=== PATIENT | female | born 1940 | race Caucasian/White ===

== ENCOUNTER 2016-10-25 00:29 | Emergency (ER) | payer MEDICARE, BC ==
[~2016-10-25] VITALS: Ht 160 cm; Wt 93.5 kg
[~2016-10-25 00:29] MED LIST: ACYC-1 PO; ASPI81TA82 PO; FISH1000 PO; FURO20TA PO; LANTUS2P SC; LEXA10TA PO; LIPI40TA PO; METO25 PO; PRED-1 PO; VALS160T4 PO
[2016-10-25 00:51] VITALS: BP 160/81; PULSE 71; RESP 18; TEMP 97.9; O2SAT 96
[2016-10-25 04:23] VITALS: BP 160/81; PULSE 71; RESP 18; TEMP 97.9; O2SAT 96
[2016-10-25 04:30] VITALS: BP 236/84; PULSE 58; RESP 18; O2SAT 96
--- NOTE | 2016-10-25 04:38 | PD ---
HPI Chief Complaint: Diabetic Time Seen by Provider: 04:32 Travel History International Travel<30 days: No Contact w/Intl Traveler<30days: No Traveled to known affect area: No History of Present Illness HPI The patient is a 75-year-old female that has a history of insulin-dependent diabetes and her blood sugar was 479 yesterday afternoon. At 2 PM she got a shot of cortisone by the orthopedist. At 6 PM she took her usual dose of Lantus , she is not on a sliding scale. At 238 tonight her blood sugar is 471 and at 420 her blood sugar was 432. She had to wait in the emergency department triage area because of a lack of nurses, there was not an available bed in the emergency department. The patient has slight nausea but no vomiting. She denies any shortness of breath. She denies any fever. She states nurses have a difficult time starting IVs in her arms. PFSH Past Medical History Hx Anticoagulant Therapy: Yes (asa) Arthritis: Yes Blood Disorders: No Anxiety: Yes Depression: Yes Cancer: Yes (MELANOMA NOSE) Cardiovascular Problems: Yes High Cholesterol: Yes Diabetes: Yes Diminished Hearing: No Endocrine: Yes Gastrointestinal Disorders: No GERD: Yes Glaucoma: No Genitourinary: No Headaches: Yes Hepatitis: No Hiatal Hernia: No Hypertension: Yes Immune Disorder: No Implanted Vascular Access Dvce: Yes Musculoskeletal: Yes Neurologic: Yes Immunizations Current: Yes Thyroid Disease: No ?: Not Menopausal: Yes Tubal Ligation: Yes Past Surgical History Abdominal Surgery: Yes (HYSTERECTOMY 1982,TUBAL LIGATION) Appendectomy: Yes Body Medical Devices: PLATE IN NECK Cholecystectomy: Yes Eye Surgery: Yes (JOVAN. CATARACT EXTRACT.) Hysterectomy: Yes Joint Replacement: Yes (LEFT HIP, R HIP 8/10 ) Neurologic Surgery: Yes (LUMBAR LAMI X2) Pacemaker: No Other Surgery: Yes (NECK SX) Social History Alcohol Use: No Tobacco Use: No Substance Use: No Allergies-Medications (Allergen,Severity, Reaction): Coded Allergies: No Known Allergies (Unverified , 10/25/16) Reported Meds & Prescriptions Reported Meds & Active Scripts Active Reported Aspirin 81 Mg Tabdr 81 Mg PO DAILY Lantus Inj (Insulin Glargine) 1,000 Unit/10 Ml Vial 65 Units SQ HS Fish Oil ([place]-3 Fatty Acids) 1,200 Mg Cap 1,200 Mg PO DAILY Coq-10 (Coenzyme Q10 (Ubidecarenone)) 150 Mg Cap 200 Mg PO DAILY Glucosamine 1,500 Mg Tab 2,000 Mg PO DAILY Metoprolol Tartrate 25 Mg Tab 12.5 Mg PO BID Valsartan-Hydrochlorothiazide 320-25 Mg Tab 1 Tab PO DAILY Furosemide 20 Mg Tab 20 Mg PO DAILY Escitalopram (Escitalopram Oxalate) 5 Mg Tab 5 Mg PO DAILY Atorvastatin (Atorvastatin Calcium) 20 Mg Tab 20 Mg PO DAILY Review of Systems Except as stated in HPI: all other systems reviewed are Neg Physical Exam Narrative GENERAL: The patient is alert, obese, oriented 3 in no apparent distress. Her vital signs show blood pressure 160/81 but are otherwise normal. There is no ketotic smell to her breath. She does not appear to be particularly dehydrated. SKIN: Warm and dry. HEAD: Atraumatic. Normocephalic. EYES: Pupils equal and round. No scleral icterus. No injection or drainage. ENT: No nasal bleeding or discharge. Mucous membranes pink and moist. NECK: Trachea midline. No JVD. CARDIOVASCULAR: Regular rate and rhythm. No murmur appreciated. RESPIRATORY: No accessory muscle use. Clear to auscultation. Breath sounds equal bilaterally. GASTROINTESTINAL: Abdomen soft, non-tender, nondistended. Hepatic and splenic margins not palpable. No guarding or rebound is present. MUSCULOSKELETAL: No obvious deformities. No clubbing. No cyanosis. No edema. NEUROLOGICAL: Awake and alert. No obvious cranial nerve deficits. Motor grossly within normal limits. Normal speech. PSYCHIATRIC: Appropriate mood and affect; insight and judgment normal. Data Data Last Documented VS Vital Signs Date Time Temp Pulse Resp B/P Pulse Ox O2 Delivery O2 Flow Rate FiO2 10/25/16 06:42 55 17 141/57 96 Room Air 10/25/16 04:23 97.9 Orders Insulin Human Regular Inj (Novolin R Inj (10/25/16 04:45) Ondansetron Odt (Zofran Odt) (10/25/16 04:45) Acetaminophen (Tylenol) (10/25/16 05:15) Insulin Human Regular Inj (Novolin R Inj (10/25/16 06:00) Insulin Human Regular Inj (Novolin R Inj (10/25/16 06:45) [facility] Medical Decision Making Medical Screen Exam Complete: Yes Emergency Medical Condition: Yes Medical Record Reviewed: Yes Differential Diagnosis Elevated blood sugar because of: Cortisone shot, infection, noncompliance to medications, inadequate insulin dose, dehydration Narrative Course The patient appears to have an elevated blood sugar because of her cortisone shot yesterday. At 0230. Blood sugar was 471. Without any insulin the 0420 blood sugar was 432. After 45 minutes and after 10 units of regular insulin subcutaneous her blood sugar was 413. After 20 units of additional regular insulin subcutaneous her blood sugar was 347 at 0643. The blood sugar is slowly going down and the patient feels fine. She will be given an additional 20 units of insulin subcutaneous and discharged home. She should follow-up with Dr. Gonzalez, hopefully today or tomorrow. The patient wants to go home now and eat breakfast. Diagnosis Primary Impression: Poorly controlled diabetes mellitus Additional Instructions: As we discussed, you can go home and eat breakfast and check here blood sugars. Follow-up with Dr. Gonzalez today or tomorrow. Disposition: DISCHARGE HOME Condition: Stable Stevenson Luong MD Oct 25, 2016 04:38
[2016-10-25] MEDS ORDERED: FURO20TA PO (04:40)
[2016-10-25] MEDS ORDERED: GLUC15009 PO (04:40)
[2016-10-25] MEDS ORDERED: LANTUS2P SQ (04:40)
[2016-10-25] MEDS ORDERED: METO25TA3 PO (04:40)
[2016-10-25] MEDS ORDERED: ESCI5TAB PO (04:40)
[2016-10-25] MEDS ORDERED: FISH120014 PO (04:40)
[2016-10-25] MEDS ORDERED: VALS320T6 PO (04:40)
[2016-10-25] MEDS ORDERED: ATOR20TA15 PO (04:40)
[2016-10-25] MEDS ORDERED: COQ-150C PO (04:40)
[2016-10-25] MEDS ORDERED: INSULIN HUMAN REGULAR 1,000 UNITS/10 ML VIAL SQ ONE ×3 (04:45→06:45)
[2016-10-25] MEDS ORDERED: ONDANSETRON ODT 4 MG TAB PO ONE (04:45)
[2016-10-25] MEDS ORDERED: ACETAMINOPHEN 500 MG CPLT PO ONE (05:15)
[2016-10-25 05:45] VITALS: BP 186/79; PULSE 55; RESP 18; O2SAT 97
[2016-10-25] MEDS ORDERED: ASPI1TAB69 PO (06:21)
[2016-10-25 06:35] VITALS: BP 176/66; PULSE 56; RESP 17; O2SAT 97
[2016-10-25 06:42] VITALS: BP 141/57; PULSE 55; RESP 17; O2SAT 96
== END 2016-10-25 07:10 | disposition home or self-care (01) ==
LOC: PHED 00:29
DX: E11.9 Type 2 diabetes mellitus without complications (principal); E78.00 Pure hypercholesterolemia, unspecified; I10 Essential (primary) hypertension; Z79.01 Long term (current) use of anticoagulants; Z79.4 Long term (current) use of insulin
CPT/HCPCS: 96372; 99284; J1815

== ENCOUNTER 2017-01-23 01:14 | Emergency (ER) | payer MEDICARE, BC ==
[~2017-01-23] VITALS: Ht 160 cm; Wt 92.3 kg
[~2017-01-23 01:14] MED LIST changes: -ACYC-1 PO; +ASPI1TAB69 PO; -ASPI81TA82 PO; +ATOR20TA15 PO; +COQ-150C PO; +ESCI5TAB PO; -FISH1000 PO; +FISH120014 PO; +GLUC15009 PO; -LANTUS2P SC; +LANTUS2P SQ; -LEXA10TA PO; -LIPI40TA PO; -METO25 PO; +METO25TA3 PO; -PRED-1 PO; -VALS160T4 PO; +VALS320T6 PO
[2017-01-23 01:20] VITALS: BP 166/74; PULSE 63; RESP 12; TEMP 97.7; O2SAT 94
[2017-01-23] MEDS ORDERED: OMEG12007 PO (01:43)
[2017-01-23] MEDS ORDERED: ASPI81CH CHEW (01:43)
[2017-01-23] MEDS ORDERED: COQ-50CA2 PO (01:43)
--- NOTE | 2017-01-23 02:03 | PD ---
HPI Chief Complaint: Abdominal Pain Time Seen by Provider: 01:44 Travel History International Travel<30 days: No Contact w/Intl Traveler<30days: No Traveled to known affect area: No History of Present Illness HPI 76-year-old female presents to the emergency department for complaint of stabbing right lower quadrant abdominal pain. Patient states she has been experiencing similar less intense symptoms intermittent he for a while but this evening symptoms became worse associated with malodorous urine and nausea. Patient denies vomiting. There is been no diarrhea. No recent antibiotic use. Patient is status post hysterectomy cholecystectomy and partial oophorectomy. No prior history of bowel obstruction. No fever or chills. Patient is diabetic and blood sugars have been well-controlled. Patient denies any chest pain or shortness of breath. Pain is 2-8/10 in intensity. PFSH Past Medical History Narrative Medical Anxiety depression arthritis melanoma of the nose dyslipidemia hypertension diabetes headache kidney stone hysterectomy tubal ligation partial oophorectomy and cholecystectomy lumbar laminectomy; no tobacco use: Nursing notes reviewed Hx Anticoagulant Therapy: Yes (asa) Arthritis: Yes Blood Disorders: No Anxiety: Yes Depression: Yes Cancer: Yes (MELANOMA NOSE) Cardiovascular Problems: Yes High Cholesterol: Yes Diabetes: Yes Patient Takes Glucophage: No Diminished Hearing: No Endocrine: Yes Gastrointestinal Disorders: No GERD: Yes Glaucoma: No Genitourinary: No Headaches: Yes Hepatitis: No Hiatal Hernia: No Hypertension: Yes Immune Disorder: No Implanted Vascular Access Dvce: Yes Kidney Stones: Yes Musculoskeletal: Yes Neurologic: Yes Respiratory: Yes (BRONCHITIS) Integumentary: Yes (ON THE NOSE) Immunizations Current: Yes Shingles: Yes Thyroid Disease: No ?: Not Menopausal: Yes : 5 Para: 2 Miscarriage: 3 Tubal Ligation: Yes Past Surgical History Abdominal Surgery: Yes (HYSTERECTOMY 1982,TUBAL LIGATION) Appendectomy: Yes Body Medical Devices: PLATE IN NECK Cholecystectomy: Yes Eye Surgery: Yes (JOVAN. CATARACT EXTRACT.) Hysterectomy: Yes Joint Replacement: Yes (BOTH KNEES AND PLATE IN NECK) Neurologic Surgery: Yes (LUMBAR LAMI X2) Pacemaker: No Other Surgery: Yes (LUMPECTOMY RIGHT BREAST) Social History Alcohol Use: No Tobacco Use: No Substance Use: No Allergies-Medications (Allergen,Severity, Reaction): Coded Allergies: No Known Allergies (Unverified , 01/23/17) Reported Meds & Prescriptions Reported Meds & Active Scripts Active Prednisone 20 Mg Tab 20 Mg PO DAILY Lortab (Hydrocodone-Acetaminophen) 5-325 Mg Tab 0.5-1 Tab PO Q6H PRN Reported Fish Oil 1,200 mg Softgel ([place]-3S/Dha/Epa/Fish Oil) 1 Each Capsule 1 Cap PO DAILY Coq-10 (Coenzyme Q10 (Ubidecarenone)) 50 Mg Cap 200 Mg PO DAILY Aspirin 81 Mg Chew 81 Mg CHEW DAILY Lantus Inj (Insulin Glargine) 1,000 Unit/10 Ml Vial 60 Units SQ HS Glucosamine 1,500 Mg Tab 2,000 Mg PO DAILY Metoprolol Tartrate 25 Mg Tab 12.5 Mg PO BID Valsartan-Hydrochlorothiazide 320-25 Mg Tab 1 Tab PO DAILY Furosemide 20 Mg Tab 20 Mg PO DAILY Escitalopram (Escitalopram Oxalate) 5 Mg Tab 5 Mg PO DAILY Atorvastatin (Atorvastatin Calcium) 20 Mg Tab 20 Mg PO DAILY Review of Systems Except as stated in HPI: all other systems reviewed are Neg General / Constitutional: No: Fever, Chills HENT: No: Congestion Cardiovascular: No: Chest Pain or Discomfort Respiratory: No: Shortness of Breath Gastrointestinal: Positive: Nausea, Abdominal Pain, No: Vomiting, Diarrhea Genitourinary: No: Dysuria, Flank Pain Musculoskeletal: No: Myalgias, Arthralgias Skin: No Rash Neurologic: No: Weakness, Dizziness, Syncope Psychiatric: No: Anxiety Hematologic/Lymphatic: No: Lymph Node Enlargement Physical Exam Narrative GENERAL: Well-developed well-nourished female in no acute distress no respiratory distress SKIN: Warm and dry. HEAD: Normocephalic. EYES: No scleral icterus. No injection or drainage. NECK: Supple, trachea midline. No JVD or lymphadenopathy. CARDIOVASCULAR: Regular rate and rhythm without murmurs, gallops, or rubs. RESPIRATORY: Breath sounds equal bilaterally. No accessory muscle use. GASTROINTESTINAL: Abdomen soft, mild right lower quadrant tenderness without guarding or rebound, nondistended. MUSCULOSKELETAL: No cyanosis, or edema. BACK: Nontender without obvious deformity. No CVA tenderness. Data Data Last Documented VS Vital Signs Date Time Temp Pulse Resp B/P Pulse Ox O2 Delivery O2 Flow Rate FiO2 01/23/17 04:20 57 198/78 01/23/17 03:35 96 Room Air 01/23/17 01:20 97.7 12 Orders Basic Metabolic Panel (Bmp) (01/23/17 01:44) Complete Blood Count With Diff (01/23/17 01:44) Lipase (01/23/17 01:44) Urinalysis - C+S If Indicated (01/23/17 01:44) Iv Access Insert/Monitor (01/23/17 01:44) Ecg Monitoring (01/23/17 01:44) Oximetry (01/23/17 01:44) Ct Abd/Pel W/O Iv Contrast (01/23/17 ) Ondansetron Inj (Zofran Inj) (01/23/17 03:15) Morphine Inj (Morphine Inj) (01/23/17 03:15) Ketorolac Inj (Toradol Inj) (01/23/17 04:30) Sodium Chlorid 0.9% 500 Ml Inj (Ns 500 M (01/23/17 04:30) Insulin Human Regular Inj (Novolin R Inj (01/23/17 04:30) Hydralazine Inj (Apresoline Inj) (01/23/17 04:30) Labs Laboratory Tests Test 01/23/17 01/23/17 01:30 01:50 Urine Color YELLOW Urine Turbidity SLIGHT Urine pH 5.5 Urine Specific [place] 1.028 Urine Protein NEG mg/dL Urine Glucose (UA) 1000 OR GREATER mg/dL Urine Ketones NEG mg/dL Urine Occult Blood NEG Urine Nitrite NEG Urine Bilirubin NEG Urine Leukocyte Esterase NEG Urine RBC 0-3 /hpf Urine WBC 3-5 /hpf Urine Squamous Epithelial 0-5 /hpf Cells Urine Bacteria OCC /hpf Microscopic Urinalysis Comment CULT NOT INDICATED White Blood Count 6.3 TH/MM3 Red Blood Count 3.97 MIL/MM3 Hemoglobin 11.7 GM/DL Hematocrit 34.5 % Mean Corpuscular Volume 87.1 FL Mean Corpuscular Hemoglobin 29.6 PG Mean Corpuscular Hemoglobin 33.9 % Concent Red Cell Distribution Width 12.5 % Platelet Count 173 TH/MM3 Mean Platelet Volume 9.5 FL Neutrophils (%) (Auto) 46.6 % Lymphocytes (%) (Auto) 37.0 % Monocytes (%) (Auto) 13.0 % Eosinophils (%) (Auto) 2.0 % Basophils (%) (Auto) 1.4 % Neutrophils # (Auto) 3.0 TH/MM3 Lymphocytes # (Auto) 2.3 TH/MM3 Monocytes # (Auto) 0.8 TH/MM3 Eosinophils # (Auto) 0.1 TH/MM3 Basophils # (Auto) 0.1 TH/MM3 CBC Comment DIFF FINAL Differential Comment Sodium Level 140 MEQ/L Potassium Level 3.8 MEQ/L Chloride Level 103 MEQ/L Carbon Dioxide Level 26.2 MEQ/L Anion Gap 11 MEQ/L Blood Urea Nitrogen 25 MG/DL Creatinine 1.30 MG/DL Estimat Glomerular Filtration 40 ML/MIN Rate Random Glucose 319 MG/DL Calcium Level 9.3 MG/DL Lipase 155 U/L MDM Medical Decision Making Medical Screen Exam Complete: Yes Emergency Medical Condition: Yes Medical Record Reviewed: Yes Interpretation(s) UA: glucosuria o/w wnl Vital Signs Date Time Temp Pulse Resp B/P Pulse Ox O2 Delivery O2 Flow Rate FiO2 01/23/17 03:06 65 207/82 98 Room Air 01/23/17 01:20 97.7 63 12 166/74 94 CBC & BMP Diagram 01/23/17 01:50 Vital Signs Date Time Temp Pulse Resp B/P Pulse Ox O2 Delivery O2 Flow Rate FiO2 01/23/17 03:06 65 207/82 98 Room Air 01/23/17 01:20 97.7 63 12 166/74 94 Differential Diagnosis Abdominal pain, UTI, renal colic, diverticulosis, colitis, appendicitis, bowel obstruction; also to consider ischemic colitis Narrative Course IV access obtained specimens collected and sent for resulting CBC was automated differential values in normal range; metabolic panel shows renal insufficiency creatinine 1.30 Urinalysis shows glucosuria values otherwise in normal range Patient complains of nausea and intermittent gripping right lower quadrant abdominal pain CT abdomen and pelvis imaging study ordered Diagnosis Primary Impression: Right groin pain Additional Impressions: Lumbar radiculopathy, right Hypertension Qualified Code: I10 - Essential hypertension DM (diabetes mellitus) Referrals: Primary Care Physician 1 day Patient Instructions: Narcotic given in the ED, General Instructions Additional Instructions: Follow-up with your primary care provider call office in a.m. to schedule follow -up appointment Apply moist heat intermittently to area of discomfort as needed Take pain medication as prescribed as needed use with caution as may cause increased risk for fall or delay reaction time or impaired judgment Return to the emergency for for any concerns or change in condition Take chronic medications as chronically prescribed Monitor blood sugars closely along with closely appearance to diabetic diet- particularly while on short course of steroid therapy Med/Other Pt SpecificInfo: Prescription(s) given Scripts Prednisone 20 Mg Tab20 Mg PO DAILY #3 TAB Ref 0 Prov:Erika Weaver MD 01/23/17 Hydrocodone-Acetaminophen (Lortab)5-325 Mg Tab0.5-1 Tab PO Q6H PRN (PAIN) #10 TAB Ref 0 Prov:Erika Weaver MD 01/23/17 Disposition: 01 DISCHARGE HOME Condition: Stable Erika Weaver MD Jan 23, 2017 02:03
[2017-01-23 02:09] LABS: BASOPHIL # 0.1 TH/MM3 (0-0.2); BASOPHIL % 1.4 % (0.0-2.0); EOSINOPHIL # 0.1 TH/MM3 (0-0.4); HEMATOCRIT 34.5 % (35.0-46.0); HEMO FLAGS DIFF FINAL; LYMPHOCYTE # 2.3 TH/MM3 (1.0-4.8); MEAN CELL VOLUME 87.1 FL (80.0-100.0); MEAN CORPUSCULAR HEMOGLOBIN 29.6 PG (27.0-34.0); MEAN CORPUSCULAR HGB CONC 33.9 % (32.0-36.0); NEUT % 46.6 % (16.0-70.0); PLATELET COUNT 173 TH/MM3 (150-450); RED BLOOD COUNT 3.97 MIL/MM3 (4.00-5.30); RED CELL DISTRIBUTION WIDTH 12.5 % (11.6-17.2); WHITE BLOOD COUNT 6.3 TH/MM3 (4.0-11.0)
[2017-01-23 02:13] LABS: BLOOD, URINE NEG (NEG); KETONE, URINE NEG (NEG); NITRITE,URINE NEG (NEG); PH, URINE 5.5 (5.0-8.5)
[2017-01-23 02:18] LABS: POTASSIUM 3.8 MEQ/L (3.5-5.1)
[2017-01-23 02:21] LABS: BICARBONATE 26.2 MEQ/L (21.0-32.0)
[2017-01-23 02:22] LABS: GLUCOSE,URINE 1000 OR GREATER mg/dL (NEG)
[2017-01-23 02:28] LABS: URINE COLOR YELLOW (YELLW/STRAW)
[2017-01-23 02:30] LABS: SQUAMOUS EPITHELIAL CELL URINE 0-5 /hpf (0-5)
[2017-01-23 02:31] LABS: BACTERIA, URINE OCC /hpf; COMMENT (UR) CULT NOT INDICATED; CULTURE IF INDICATED CULT NOT INDICATED; RBC, URINE 0-3 /hpf (0-3)
[2017-01-23 03:06] VITALS: BP 207/82; PULSE 65; O2SAT 98
[2017-01-23] MEDS ORDERED: ONDANSETRON HCL 4 MG/2 ML VIAL IV PUSH ONE (03:15)
[2017-01-23] MEDS ORDERED: MORPHINE SULFATE 4 MG/ML INJ IV PUSH ONE (03:15)
[2017-01-23 03:35] VITALS: BP 224/94; PULSE 62; O2SAT 96
--- NOTE | 2017-01-23 03:49 | RADHPO ---
EXAM DATE/TIME: 01/23/2017 03:16 [facility] COMPARISON: Report only CT ABDOMEN & PELVIS W CONTRAST, April 23, 2012, 3:06. INDICATIONS : Right lower abdominal pain. ORAL CONTRAST: No oral contrast ingested. RADIATION DOSE: 24.76 CTDIvol (mGy) MEDICAL HISTORY : Diabetes mellitus type 2. Hypertension. SURGICAL HISTORY : Appendectomy. Cholecystectomy.Hysterectomy. ENCOUNTER: Initial ACUITY: 1 day PAIN SCALE: 9/10 LOCATION: Right lower quadrant TECHNIQUE: Volumetric scanning of the abdomen and pelvis was performed. Using automated exposure control and ad justment of the mA and/or kV according to patient size, radiation dose was kept as low as reasonably achievable to obtain optimal diagnostic quality images. FINDINGS: LOWER LUNGS: The visualized lower lungs are clear. LIVER: Homogeneous density without lesion. There is no dilation of the biliary tree. Cholecystectomy since the prior CT.. SPLEEN: Normal size without lesion. PANCREAS: Within normal limits. KIDNEYS: Normal in size and shape. There is no mass, stone, or hydronephrosis. ADRENAL GLANDS: Within normal limits. VASCULAR: There is no aortic aneurysm. BOWEL/MESENTERY: The stomach, small bowel, and colon demonstrate no acute abnormality. There is no free intraperitone al air or fluid. Appendix well visualized, normal. ABDOMINAL WALL: Within normal limits. RETROPERITONEUM: There is no lymphadenopathy. BLADDER: No wall thickening or mass. REPRODUCTIVE: Within normal limits. INGUINAL: There is no lymphadenopathy or hernia. MUSCULOSKELETAL: No acute bony abnormality demonstrated. Previous bilateral hip arthroplasties with associated metalli c streak artifact. CONCLUSION: No acute abnormality demonstrated. Ok Martin MD on January 23, 2017 at 3:46 Board Certified Radiologist. This report was verified electronically.
[2017-01-23 04:20] VITALS: BP 198/78; PULSE 57
[2017-01-23] MEDS ORDERED: KETOROLAC TROMETHAMINE 30 MG/ML (IVP) VIAL IV PUSH ONE (04:30)
[2017-01-23] MEDS ORDERED: INSULIN HUMAN REGULAR 1,000 UNITS/10 ML VIAL SQ ONE (04:30)
[2017-01-23] MEDS ORDERED: SODIUM CHLORID 0.9% 500 ML INJ 500 ML IV ONE (04:30)
[2017-01-23] MEDS ORDERED: hydrALAZINE HCL 20 MG/ML VIAL IV PUSH ONE (04:30)
[2017-01-23] MEDS ORDERED: HYDR-3533 PO (05:30)
[2017-01-23] MEDS ORDERED: PRED20 PO (05:30)
[2017-01-23 06:10] VITALS: BP 173/74
== END 2017-01-23 06:11 | disposition home or self-care (01) ==
LOC: PHED 01:14
DX: R10.31 Right lower quadrant pain (principal); I10 Essential (primary) hypertension; E11.9 Type 2 diabetes mellitus without complications; M54.16 Radiculopathy, lumbar region; E78.00 Pure hypercholesterolemia, unspecified; K21.9 Gastro-esophageal reflux disease without esophagitis; Z87.442 Personal history of urinary calculi; Z79.82 Long term (current) use of aspirin
CPT/HCPCS: 74176; 80048; 81001; 83690; 85025; 96361; 96372; 96374; 96375; 99285; J0360; J1815; J1885; J2270; J2405; J7040

== ENCOUNTER → 2017-04-24 | Outpatient (CLI) | payer MEDICARE, BC ==
[~2017-04-24] MED LIST changes: +ADJUSTABLE COMM1 MIS; -ASPI1TAB69 PO; +ASPI81CH CHEW; -COQ-150C PO; +COQ-50CA2 PO; +CPMMACHINE; -FISH120014 PO; +HYDR-3533 PO; +MELO-1 PO; +OMEG12007 PO; +OXYC1TAB63 PO; +PANT40TA3 PO; +PRED20 PO; +WALKER WHEELS/F1 MIS; +XARE10TA PO
[2017-04-24 10:03] LABS: BACTERIA, URINE FEW /hpf; BLOOD, URINE NEG (NEG); GLUCOSE,URINE TRACE mg/dL (NEG); HYALINE CAST, URINE 4 /lpf (RARE); KETONE, URINE NEG (NEG); NITRITE,URINE NEG (NEG); SQUAMOUS EPITHELIAL CELL URINE <1 /hpf (0-5); URINE COLOR LIGHT-YELLOW (YELLW/STRAW)
[2017-04-24 10:03] LABS: AUTOMATED NEUTROPHIL # 4.3 TH/MM3 (1.8-7.7); BASOPHIL # 0.1 TH/MM3 (0-0.2); BASOPHIL % 0.9 % (0.0-2.0); EOSINOPHIL # 0.1 TH/MM3 (0-0.4); EOSINOPHIL % 1.5 % (0.0-4.0); HEMATOCRIT 36.7 % (35.0-46.0); HEMO FLAGS DIFF FINAL; LYMPH % 27.2 % (9.0-44.0); LYMPHOCYTE # 1.9 TH/MM3 (1.0-4.8); MEAN CELL VOLUME 90.2 FL (80.0-100.0); MEAN CORPUSCULAR HEMOGLOBIN 30.2 PG (27.0-34.0); MEAN CORPUSCULAR HGB CONC 33.5 % (32.0-36.0); MONO % 9.2 % (0.0-8.0); NEUT % 61.2 % (16.0-70.0); PLATELET COUNT 177 TH/MM3 (150-450); RED BLOOD COUNT 4.07 MIL/MM3 (4.00-5.30); RED CELL DISTRIBUTION WIDTH 13.2 % (11.6-17.2)
[2017-04-24 10:04] LABS: COMMENT (UR) CATH-CULTURE IND; CULTURE IF INDICATED CATH CULTURE IND
[2017-04-24 10:07] LABS: APTT (PATIENT) 22.1 SEC (24.3-30.1); INTERNATIONAL NORMALIZED RATIO 0.9 RATIO; PROTHROMBIN TIME - PATIENT 9.9 SEC (9.8-11.6)
[2017-04-24 10:26] LABS: WESTERGREN SEDIMENTATION RATE 30 mm/hr (0-30)
--- NOTE | 2017-04-25 14:10 | EKG ---
Date Performed: 04/24/2017 Time Performed: 09:18:05 PTAGE: 76 years EKG: Sinus rhythm WITH MARKED SINUS ARRHYTHMIA BORDERLINE ECG Compared to prior tracing no significant change PREVIOUS TRACING : 08/02/2014 21.39 DOCTOR: Jero Bey Interpretating Date/Time 04/25/2017 14:07:09
== END ==
LOC: CPRE 08:16
PROVIDERS: ATTEND Orthopaedic Surgery Orthopaedic Surgery of the Spine
DX: Z01.812 Encounter for preprocedural laboratory examination (principal); Z01.810 Encounter for preprocedural cardiovascular examination; M25.50 Pain in unspecified joint; M17.11 Unilateral primary osteoarthritis, right knee; B96.20 Unspecified Escherichia coli [E. coli] as the cause of diseases classified elsewhere; R82.99 Other abnormal findings in urine; Z79.01 Long term (current) use of anticoagulants
CPT/HCPCS: 36415; 80048; 81001; 85025; 85610; 85652; 85730; 87077; 87086; 87186; 93005

== ENCOUNTER 2017-05-09 05:21 | Inpatient (IN) | payer MEDICARE, BC ==
[~2017-05-09] VITALS: Ht 160 cm; Wt 98.9 kg
[~2017-05-09 05:21] MED LIST changes: -ADJUSTABLE COMM1 MIS; -CPMMACHINE; -HYDR-3533 PO; -OXYC1TAB63 PO; -WALKER WHEELS/F1 MIS; -XARE10TA PO
[2017-05-09] MEDS ORDERED: CHLORHEXIDINE GLUCONATE 2 % 1 PACK (2 CLOTHS) TOPICAL PRN (06:00)
[2017-05-09] MEDS ORDERED: LACTATED RINGER'S 1000 ML IV PRN (06:00)
[2017-05-09] MEDS ORDERED: INSULIN HUMAN REGULAR 1,000 UNITS/10 ML VIAL SQ PRN (06:00)
[2017-05-09] MEDS ORDERED: METOPROLOL TARTRATE 25 MG TAB PO PRN (06:00)
[2017-05-09] MEDS ORDERED: VANCOMYCIN 1000 MG/NS 250 ML (for <70 kg) IV SCH ×2 (06:00)
[2017-05-09] MEDS ORDERED: POVIDONE IODINE 5% (ANTISEPSIS KIT) 4 APPLICATIONS EACH NARE PRN (06:00)
[2017-05-09] MEDS ORDERED: ceFAZolin 2 GM PREMIX 50 ML IV SCH (06:00)
[2017-05-09] MEDS ORDERED: POVIDONE IODINE 7.5% SCRUB 118 ML BOTTLE TOPICAL SCH (06:00)
[2017-05-09] MEDS ORDERED: SODIUM CHLORID 0.9% 500 ML IV PRN (06:00)
[2017-05-09] MEDS ORDERED: GENTAMICIN SULFATE 80 MG/2 ML VIAL ONE (06:13)
[2017-05-09] MEDS ORDERED: FAMOTIDINE 20 MG/2 ML VIAL ONE (07:09)
[2017-05-09] MEDS ORDERED: ACETAMINOPHEN 1000 MG/100 ML 100 ML IV ONE (07:12)
[2017-05-09] MEDS ORDERED: BUPIVACAINE HCL PF 0.5% 30 ML VIAL ONE (07:14)
[2017-05-09] MEDS ORDERED: EXPAREL PERI-ARTICULAR INJECTION (TOTAL VOL. 60 ML) P-ARTICULR SCH ×2 (07:30)
[2017-05-09] MEDS ORDERED: TRANEXAMIC ACID INJ 905 MG in SODIUM CHLORIDE 0.9% INJ 100 ML IV SCH (07:30)
[2017-05-09] MEDS: LACTATED RINGER'S 1000 ML INJ 1,000 ML IV SCH ×2 (09:27→21:05)
[2017-05-09] MEDS ORDERED: Post-op Orders (for Pharmacy) MISC XX ONE (09:30)
[2017-05-09] MEDS ORDERED: SODIUM CHLORIDE 0.9% FLUSH 5 ML FLUSH IVF PRN (09:30)
[2017-05-09] MEDS ORDERED: MISCELLANEOUS PHARMACY INFORMATION XX ONE (09:30)
[2017-05-09] MEDS ORDERED: oxyCODONE/ACETAMINOPHEN 5 MG/325 MG TAB PO PRN (09:30)
[2017-05-09] MEDS ORDERED: NALOXONE HCL 0.4 MG/ML AMP IV PRN (09:30)
[2017-05-09] MEDS ORDERED: MORPHINE SULFATE 30 MG/30 ML PCA IV SCH (09:30)
[2017-05-09] MEDS ORDERED: MORPHINE SULFATE 8 MG/ML INJ IM PRN (09:30)
[2017-05-09] MEDS ORDERED: DEXTROSE 50% IN WATER 50 ML VIAL(D50) IV PUSH PRN (09:30)
[2017-05-09] MEDS ORDERED: GLUCAGON 1 MG/ML VIAL OTHER PRN (09:30)
[2017-05-09] MEDS ORDERED: MISCELLANEOUS NURSING INFORMATION XX PRN (09:30)
[2017-05-09] MEDS ORDERED: XARE10TA PO (09:38)
[2017-05-09] MEDS ORDERED: OXYC1TAB63 PO (09:38)
--- NOTE | 2017-05-09 09:42 | PD.OP ---
cc: Gerald Acosta MD Operative Report Date of Surgery: May 09, 2017 Preoperative Diagnosis: Osteoarthritis right knee Postoperative Diagnosis: Same Procedure: Right total knee replacement arthroplasty Anesthesia: Gen. with regional block Surgeon: Gerald Acosta [employer] Sergeant(s): BISI Macdonald Operation and Findings: EBL: 100 cc INDICATION: This patient presents with long-standing arthritis of the knee. Attachment record documents conservative measures. The patient now presents for surgical treatment. NOTE: Ivelisse Macdonald PA-C was present for the entire surgical procedure as my rn first assist. In my medical opinion her skill and care was necessary for proper management of this patient. TOURNIQUET TIME: 53 minutes COMPANY: [employer] FEMUR: Size 3, cruciate retaining, right, cemented TIBIA: Size 4, fixed bearing, cemented PATELLA: 35 mm POLYETHYLENE INSERT: 13 mm,++ PROCEDURE: This patient was brought the operating room and anesthetized in the supine position. The patient was positioned supine on the table. The tourniquet was placed about the thigh, and the leg was scrubbed with alcohol followed by Hibiclens followed by ChloraPrep and draped sterilely. A timeout was done, and antibiotics were given. After exsanguination the tourniquet was inflated to 300 mmHg. An anterior incision was made and a median parapatellar arthrotomy was performed. The patella was released laterally and subluxed allowing freehand cut of the patella which was then sized. A metal cap was placed over the exposed patellar surface for protection. A agricultural pilot hole was placed in the distal femur allowing a 5 valgus cut removing 10 mm from the distal femur. Anterior posterior and chamfer cuts were made. The posterior stabilize osteotomy was made. The attention was directed to the tibia. Retractors were positioned. The external alignment guide was used allowing the lateral tibia to be used as referencing guide and cut utilizing an oscillating saw taking care to avoid any injury to the surrounding soft tissues. This was sized properly. Trial reduction showed that the insert fit nicely. The patient had range of motion extension 0 flexion 115. A medial release was not necessary. The bony surfaces prepared. On the back table 2 packets of methylmethacrylate were mixed. The components were cemented. Excess cement was removed. The tourniquet let down and hemostasis was controlled. The final plastic insert was inserted. Range of motion was the same as previously noted. A drain was brought through a separate stab incision. The arthrotomy was repaired with interrupted #1 Vicryl suture, subcutaneous tissue 2-0 Vicryl suture and skin with metallic conor A sterile dressing was applied. Sponge counts, needle counts and instrument counts were all correct. The patient tolerated procedure well and was taken to recovery in satisfactory condition. FINDINGS: Was severe osteoarthritis of all 3 compartments. Before the surgical treatment maximal flexion was 85-90. At the end of the surgery, flexion was 115 with the hip bent 90 and the leg flexing with gravity. The overall alignment was satisfactory. No complication was appreciated. Gerald Acosta MD May 09, 2017 09:42
[2017-05-09] MEDS ORDERED: DO NOT ADM ANY ANTICOAGULANT DRUGS PRN (09:55)
[2017-05-09] MEDS ORDERED: PILL SPLITTER OTHER PRN (10:15)
[2017-05-09] MEDS ORDERED: *ONDANSETRON 4 MG VIAL PERIprocedural Use ONLY ONE (10:29)
--- NOTE | 2017-05-09 10:37 | RADRPT ---
EXAM DATE/TIME: 05/09/2017 10:05 [facility] COMPARISON: No previous studies available for comparison. INDICATIONS : Post op right total knee. MEDICAL HISTORY : Diabetes mellitus type 2. Hypertension. SURGICAL HISTORY : Appendectomy. Cholecystectomy.Hysterectomy ENCOUNTER: Initial ACUITY: 1 day PAIN SCORE: 8/10 LOCATION: Right Knee FINDINGS: Postsurgical features of right knee arthroplasty. Arthroplasty components are in anatomic alignment. No significant acute bony fracture. Immediate postsurgical soft tissue features. CONCLUSION: 1. Status post right knee arthroplasty in anatomic alignment without significant acute bony fracture. Aaron Dimas MD on May 09, 2017 at 10:35 Board Certified Radiologist. This report was verified electronically.
[2017-05-09] MEDS ORDERED: *PROMETHAZINE 25 MG/ML VIAL PERIprocedural use ONLY ONE (11:07)
[2017-05-09] MEDS: INSULIN ASPART SUPPLEMENTAL SCALE SQ SCH ×3 (11:59→21:00)
[2017-05-09] MEDS ORDERED: PROPOFOL 200 MG/20 ML AMP IV ONE (12:00)
[2017-05-09] MEDS ORDERED: MIDAZOLAM HCL 2 MG/2 ML VIAL IV ONE (12:00)
[2017-05-09] MEDS ORDERED: ROCURONIUM INJ 50 MG/5 ML SYRINGE IV PUSH ONE (12:00)
[2017-05-09] MEDS ORDERED: NEOSTIGMINE 3 MG/3 ML SYR IV ONE (12:00)
[2017-05-09] MEDS ORDERED: ePHEDrine/NS 25 MG/5 ML SYR IV ONE (12:00)
[2017-05-09] MEDS ORDERED: GLYCOPYRROLATE 1 MG/5 ML SYRINGE IV PUSH ONE (12:00)
[2017-05-09] MEDS ORDERED: LIDOCAINE HCL 1% PF 5 ML AMPULE OTHER ONE (12:00)
[2017-05-09] MEDS ORDERED: hydrALAZINE HCL 20 MG/ML VIAL IV ONE (12:00)
[2017-05-09] MEDS ORDERED: ONDANSETRON HCL 4 MG/2 ML VIAL IV PUSH ONE (12:00)
[2017-05-09] MEDS: PCA - TOTAL MG MORPHINE DELIVERED PER SHIFT SCH ×2 (14:00→22:00)
[2017-05-09 16:00] VITALS: BP 136/58; PULSE 79; RESP 19; TEMP 96.4; O2SAT 96
[2017-05-09] MEDS ORDERED: PHENOL 1.4% SOLN 180 ML BTL OROPHARYNG PRN (20:00)
[2017-05-09 20:10] VITALS: BP 112/61; PULSE 91; RESP 18; TEMP 98.1; O2SAT 93
[2017-05-09] MEDS ORDERED: TEMAZEPAM 15 MG CAP PO PRN (21:00)
[2017-05-09] MEDS: MAGNESIUM HYDROXIDE SUSP 30 ML CUP PO SCH (21:00)
[2017-05-09] MEDS: SODIUM CHLORIDE 0.9% FLUSH 5 ML FLUSH IVF SCH (21:00)
[2017-05-09] MEDS: METOPROLOL TARTRATE 25 MG TAB PO SCH (21:05)
[2017-05-09] MEDS ORDERED: WALKER WHEELS/F1 MIS (21:06)
[2017-05-09] MEDS: SENNOSIDES 8.6 MG TAB PO SCH (21:06)
[2017-05-09] MEDS ORDERED: CPMMACHINE (21:07)
[2017-05-09] MEDS ORDERED: ADJUSTABLE COMM1 MIS (21:08)
--- NOTE | 2017-05-09 21:12 | HHI.DS ---
Discharge Summary Admission Date May 09, 2017 at 05:21 Discharge Date: May 12, 2017 Admitting Diagnosis see below Diagnosis: (1) Osteoarthritis of right knee Diagnosis: Principal ICD Codes: M17.11 - Unilateral primary osteoarthritis, right knee Procedures Right total knee arthroplasty Brief History This is a 76 year old female patient with a history of bilateral knee pain and arthritis. Her right knee pain began to increase substantially earlier this year after she completed a series of euflexxa injections for her left knee. Xrays showed moderate arthritis of her right knee. She attempted use of a cane , medications, a steroid injection and a series of euflexxa injections. Her function continued to decline. Surgical treatment was recommended in the form of right total knee arthroplasty. She agreed and presents for the above procedure. Hospital Course Surgical treatment was performed on the day of admission without complication. She recovered well in PACU and was transferred to the orthopedic floor. Pain was controlled with IV and oral medications. DVT prophylaxis was initiated postop day 1 with Xarelto 10 mg. The patient was compliant but had limited motivation to pursue physical therapy. She did not get out of bed postop day 1. She did limited therapy day 2. The hospitalist was consulted to manage her diabetes and monitor her blood glucose levels. After 3 days she was found to be stable and discharged to a fpc facility. She was educated to pursue a high-fiber diet, continue her xarelto, and to continue a more rigorous physical therapy program. Pt Condition on Discharge: Stable Discharge Disposition: Discharge to SNF Discharge Instructions Diet Instructions: Diabetic Diet, High Fiber Diet Activities You Can Perform: Weight Bearing as [place] Activities to Avoid: Strenuous Activity Additional Activity Instruc.: TKA protocol New Medications: Adjustable Commode 3-in-1 (Adjustable Commode 3-in-1) 1 Mis Mis EA .ROUTE DIRECTED, #1 CPM-Continuous Passive Motion Machine (CPM-Continuous Passive Motion Machine) 1 Ea Device EA .ROUTE DIRECTED, #1 0 Refills Walker with Front Wheels (Walker with Front Wheels) 1 Mis Mis EA .ROUTE DIRECTED, #1 0 Refills Oxycodone-Acetaminophen (Oxycodone-Acetaminophen) 5-325 mg Tab 1 TAB PO Q4H PRN for PAIN, #50 TAB Rivaroxaban (Xarelto) 10 Mg Tab 10 MG PO Q24H for Prevent Blood Clot, #25 TAB Continued Medications: Aspirin (Aspirin) 81 Mg Chew 81 MG CHEW DAILY, TAB 0 Refills Atorvastatin (Atorvastatin) 20 Mg Tab 20 MG PO DAILY for Cholesterol Management, #30 TAB 0 Refills Coenzyme Q10 (Ubidecarenone) (Coq-10) 50 Mg Cap 200 MG PO DAILY Escitalopram (Escitalopram) 5 Mg Tab 5 MG PO DAILY, #30 TAB 0 Refills Furosemide (Furosemide) 20 Mg Tab 20 MG PO DAILY, #30 TAB 0 Refills Glucosamine (Glucosamine) 1,500 Mg Tab 2000 MG PO DAILY for Herbal Supplements, TAB 0 Refills Insulin Glargine Inj (Lantus Inj) 1,000 Unit/10 Ml Vial 70 UNITS SQ HS for Blood Sugar Management, VIAL 0 Refills Meloxicam (Meloxicam) 15 Mg Tab 15 MG PO DAILY for Arthritis Pain, #30 TAB 0 Refills Metoprolol Tartrate (Metoprolol Tartrate) 25 Mg Tab 12.5 MG PO BID, #60 TAB 0 Refills [place]-3S/Dha/Epa/Fish Oil (Fish Oil 1,200 mg Softgel) 1 Each Capsule 1 CAP PO DAILY Pantoprazole (Pantoprazole) 40 Mg Tab 40 MG PO DAILY for Reflux, #30 TAB 0 Refills Prednisone (Prednisone) 20 Mg Tab 20 MG PO DAILY, #3 TAB 0 Refills Valsartan-Hydrochlorothiazide (Valsartan-Hydrochlorothiazide) 320-25 Mg Tab 1 TAB PO DAILY for Blood Pressure Management, #30 TAB 0 Refills Michelle Carson May 09, 2017 21:12
[2017-05-09 21:49] VITALS: O2SAT 98
[2017-05-10] VITALS (8 sets, daily range): BP systolic 98–150; BP diastolic 43–74; PULSE 71–93; RESP 16–19; TEMP 96.4–100.8; O2SAT 92–95
[2017-05-10] MEDS: PCA - TOTAL MG MORPHINE DELIVERED PER SHIFT SCH (06:00)
[2017-05-10 07:18] LABS: HEMATOCRIT 31.4 % (35.0-46.0); REVIEW FLAG FINAL
[2017-05-10] MEDS: INSULIN ASPART SUPPLEMENTAL SCALE SQ SCH ×4 (08:00→23:52)
[2017-05-10] MEDS: SODIUM CHLORIDE 0.9% FLUSH 5 ML FLUSH IVF SCH ×2 (09:00→21:00)
[2017-05-10] MEDS ORDERED: NON-FORMULARY DRUG (Valsartan-Hydrochlorothiazide 1 TAB) PO SCH (09:00)
[2017-05-10] MEDS: RIVAROXABAN 10 MG TAB PO SCH (09:34)
[2017-05-10] MEDS: ESCITALOPRAM OXALATE 10 MG TAB PO SCH (09:34)
[2017-05-10] MEDS: MAGNESIUM HYDROXIDE SUSP 30 ML CUP PO SCH ×2 (09:34→23:49)
[2017-05-10] MEDS: FUROSEMIDE 20 MG TAB PO SCH (09:35)
[2017-05-10] MEDS: VALSARTAN 160 MG TAB PO SCH (09:35)
[2017-05-10] MEDS: ATORVASTATIN 20 MG TAB PO SCH (09:35)
[2017-05-10] MEDS: HYDROCHLOROTHIAZIDE 25 MG TAB PO SCH (09:35)
[2017-05-10] MEDS: METOPROLOL TARTRATE 25 MG TAB PO SCH ×2 (09:36→22:56)
[2017-05-10] MEDS: PANTOPRAZOLE SOD 40 MG DELAYED RELEASE TAB PO SCH (09:40)
[2017-05-10] MEDS: oxyCODONE/ACETAMINOPHEN 5 MG/325 MG TAB PO PRN ×3 (09:40→22:54)
[2017-05-10] MEDS: LACTATED RINGER'S 1000 ML INJ 1,000 ML IV SCH ×2 (10:27→22:57)
--- NOTE | 2017-05-10 13:54 | PD.ORT.PN ---
Subjective Subjective Remarks She was doing well yesterday. Her block wore off this morning and she has ' alot of pain'. Most pain is anterior knee and lower thigh. She has a slight cough. No complaints of fever, SOB, CP or abd pain. Objective Vitals Vital Signs Date Time Temp Pulse Resp B/P (MAP) Pulse Ox O2 Delivery O2 Flow Rate FiO2 05/10/17 13:02 92 05/10/17 11:20 99.1 71 19 116/43 (67) 95 05/10/17 10:40 18 05/10/17 07:52 99.8 73 19 98/44 (62) 92 05/10/17 04:53 99.6 81 19 124/50 (74) 94 05/10/17 00:20 99.9 93 18 150/61 (90) 92 05/09/17 21:49 98 05/09/17 20:10 98.1 91 18 112/61 (78) 93 05/09/17 18:49 Room Air 05/09/17 16:00 96.4 79 19 136/58 (84) 96 I/O 05/09/17 05/09/17 05/09/17 05/10/17 05/10/17 05/10/17 07:00 15:00 23:00 07:00 15:00 23:00 Intake Total 1271 ml 240 ml 1461 ml Output Total 900 ml 525 ml 225 ml Balance 371 ml -285 ml 1236 ml Intake Oral 240 ml 240 ml IV Total 271 ml 1221 ml Other 1000 ml Output Urine Total 800 ml 525 ml 225 ml Estimated Blood Loss 100 ml # Bowel Movements 0 0 Result Diagram: 05/10/17 0541 Procedures Right total knee arthroplasty Objective Remarks Laying in bed, NAD VSS RLE Dressing c/d/i, minimal drainage, mild to moderate swelling, no erythema +motor at, +sens distal, +nvi Neg homans sign, calf supple Assessment & Plan Ortho Post Op Day #: 1 Problem List: (1) Osteoarthritis of right knee ICD Codes: M17.11 - Unilateral primary osteoarthritis, right knee Qualifiers: Qualified Codes: M17.11 - Unilateral primary osteoarthritis, right knee Assessment and Plan pod#1 s/p R TKA Ortho stable but painful. 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 Will d/c tomorrow. Hold dressing changes unless saturated. I did not see a drain. Xarelto 10mg qd for 2 weeks. PT - WBAT RLE, TKA protocol. CPM bid. Ambulate 1-2 times daily. She will need motivation as she is very sedentary (prior to surgery). Med consult for management of diabetes. D/C planning, [facility] monday. Michelle Carson May 10, 2017 13:53
--- NOTE | 2017-05-10 17:56 | PD.CONS ---
[facility] By [facility] team Reason for Consult Assist with medical management Primary Care Physician Adriana Niño MD Diagnoses: History of Present Illness Written by Av Goode, acting as scribe for Dr. Rae on 05/10/17 at 17: 57. Patient is a 76-year-old female with primary medical history of HTN, DM 2, HLD, osteoarthritis who came into the hospital for surgical intervention secondary to right knee pain. Patient is status post right total knee arthroplasty by Dr. Acosta. Consulted for medical management. Patient seen and examined today. States that she is in pain on her right knee, 8/10, aggravated by movement. States that she had morphine yesterday but they stopped giving it to her because of rash reaction. Patient also complains of cough unable to expectorate. Low-grade fever today. Denies chills, nausea, vomiting, diarrhea. Denies shortness of breath or dyspnea. Denies chest pain, palpitations, headaches, dizziness. Review of Systems Except as stated in HPI: all other systems reviewed are Neg Past Family Social History Allergies: Coded Allergies: No Known Allergies (Unverified , 05/29/17) Past Medical History HTN HLD DM 2, insulin use Osteoarthritis Past Surgical History Tubal ligation Hysterectomy Next surgery Cataract surgery Left hip surgery 2 Lumbar laminectomies Cholecystectomy Reported Medications Reported Meds & Active Scripts Active Xarelto (Rivaroxaban) 10 Mg Tab 10 Mg PO Q24H Oxycodone-Acetaminophen 5-325 mg Tab 1 Tab PO Q4H PRN Prednisone 20 Mg Tab 20 Mg PO DAILY Reported Pantoprazole (Pantoprazole Sodium) 40 Mg Tab 40 Mg PO DAILY Meloxicam 15 Mg Tab 15 Mg PO DAILY Fish Oil 1,200 mg Softgel ([place]-3S/Dha/Epa/Fish Oil) 1 Each Capsule 1 Cap PO DAILY Coq-10 (Coenzyme Q10 (Ubidecarenone)) 50 Mg Cap 200 Mg PO DAILY Aspirin 81 Mg Chew 81 Mg CHEW DAILY Lantus Inj (Insulin Glargine) 1,000 Unit/10 Ml Vial 70 Units SQ HS Glucosamine 1,500 Mg Tab 2,000 Mg PO DAILY Metoprolol Tartrate 25 Mg Tab 12.5 Mg PO BID Valsartan-Hydrochlorothiazide 320-25 Mg Tab 1 Tab PO DAILY Furosemide 20 Mg Tab 20 Mg PO DAILY Escitalopram (Escitalopram Oxalate) 5 Mg Tab 5 Mg PO DAILY Atorvastatin (Atorvastatin Calcium) 20 Mg Tab 20 Mg PO DAILY Active Ordered Medications Current Medications Medications (Trade) Dose Ordered Sig/Jesus Route Start Time Stop Time Status Last Admin Lactated Ringer's 1,000 ml @ 30 mls/hr Q24H PRN IV 05/09/17 06:00 05/12/17 05:59 05/09/17 05:50 Sodium Chloride 500 ml @ 30 mls/hr [id number] PRN IV 05/09/17 06:00 05/12/17 05:59 (Lopressor) 25 mg ELECTRONICS PROCESSOR PRN PO 05/09/17 06:00 05/12/17 05:59 (Betadine 5% Antisepsis Kit) 1 applic ELECTRONICS PROCESSOR PRN EACH NARE 05/09/17 06:00 05/12/17 05:59 05/09/17 05:55 (Chlorhexidine 2% Cloth) 3 pack ELECTRONICS PROCESSOR PRN TOPICAL 05/09/17 06:00 05/12/17 05:59 05/09/17 05:30 (NovoLIN R INJ) See Protocol Table ... ELECTRONICS PROCESSOR PRN SQ 05/09/17 06:00 05/12/17 05:59 (Betadine 7.5% Scrub) 1 applic ONCE TOPICAL 05/09/17 06:00 05/12/17 05:59 Cefazolin Sodium/ Dextrose 50 ml @ 100 mls/hr ELECTRONICS PROCESSOR IV 05/09/17 06:00 05/12/17 05:59 05/09/17 07:44 Vancomycin HCl 1000 mg/Sodium Chloride 250 ml @ 250 mls/hr ELECTRONICS PROCESSOR IV 05/09/17 06:00 05/12/17 05:59 05/09/17 06:23 (Lipitor) 20 mg DAILY PO 05/10/17 09:00 05/10/17 09:35 (Lexapro) 5 mg DAILY PO 05/10/17 09:00 05/10/17 09:34 (Lasix) 20 mg DAILY PO 05/10/17 09:00 05/10/17 09:35 (Lopressor) 12.5 mg BID PO 05/09/17 21:00 05/10/17 09:36 (Protonix) 40 mg DAILY PO 05/10/17 09:00 05/10/17 09:40 Lactated Ringer's 1,000 ml @ 80 mls/hr [id number] IV 05/09/17 09:27 05/09/17 21:05 (NS Flush) 2 ml UNSCH PRN IVF 05/09/17 09:30 (NS Flush) 2 ml BID IVF 05/09/17 21:00 (Xarelto) 10 mg Q24H PO 05/10/17 09:00 05/10/17 09:34 Miscellaneous Information UNSCH PRN XX 05/09/17 09:30 (Morphine Inj) 5 mg Q3H PRN IM 05/09/17 09:30 (Percocet 5-325 Mg) 1 tab Q4H PRN PO 05/09/17 09:30 05/10/17 09:40 (Percocet 5-325 Mg) 2 tab Q4H PRN PO 05/09/17 09:30 (Restoril) 15 mg HS PRN PO 05/09/17 21:00 (Milk Of Magnesia Liq) 30 ml BID PO 05/09/17 21:00 05/10/17 09:34 (Senokot) 17.2 mg HS PO 05/09/17 21:00 05/09/17 21:06 (Narcan Inj) 0.4 mg UNSCH PRN IV 05/09/17 09:30 (D50w (Vial) Inj) 50 ml UNSCH PRN IV PUSH 05/09/17 09:30 (Glucagon Inj) 1 mg UNSCH PRN OTHER 05/09/17 09:30 (NovoLOG SUPPLEMENTAL SCALE) 1 ACHS SLIDING SCALE SQ 05/09/17 12:00 05/09/17 11:59 (Pill Splitter) 1 ea UNSCH PRN OTHER 05/09/17 10:15 (Diovan) 320 mg DAILY PO 05/10/17 09:00 05/10/17 09:35 (Hydrodiuril) 25 mg DAILY PO 05/10/17 09:00 05/10/17 09:35 (Chloraseptic [place]) 1 spray Q2H PRN OROPHARYNG 05/09/17 20:00 05/09/17 21:12 Family History Mother of blood clot Father of heart attack age 63 Social History Denies alcohol use Denies tobacco use Denies illicit drug use Physical Exam Vital Signs Vital Signs Date Time Temp Pulse Resp B/P (MAP) Pulse Ox O2 Delivery O2 Flow Rate FiO2 05/10/17 16:00 96.4 71 19 133/74 (93) 93 05/10/17 13:02 92 05/10/17 11:20 99.1 71 19 116/43 (67) 95 05/10/17 10:40 18 05/10/17 07:52 99.8 73 19 98/44 (62) 92 05/10/17 04:53 99.6 81 19 124/50 (74) 94 05/10/17 00:20 99.9 93 18 150/61 (90) 92 05/09/17 21:49 98 05/09/17 20:10 98.1 91 18 112/61 (78) 93 05/09/17 18:49 Room Air Physical Exam GENERAL: This is an overweight, well-developed patient, mildly ill appearing. SKIN: Warm and dry. HEAD: Atraumatic. Normocephalic. No temporal or scalp tenderness. EYES: Pupils equal round and reactive. Extraocular motions intact. No scleral icterus. No injection or drainage. ENT: Nose without bleeding. Throat without with erythema. Uvula midline. Airway patent. NECK: Trachea midline. Supple. CARDIOVASCULAR: Regular rate and rhythm without murmurs, gallops, or rubs. RESPIRATORY: Right lobe rhonchi, expiratory wheeze. Positive cough. GASTROINTESTINAL: Abdomen soft, non-tender, nondistended. Bowel sounds active 4 MUSCULOSKELETAL: Extremities without clubbing, cyanosis, or edema. NEUROLOGICAL: Awake and alert. Cranial nerves II through XII intact. Motor and sensory grossly within normal limits. Normal speech. Laboratory Laboratory Tests Test 05/10/17 05:41 Hemoglobin 10.4 Hematocrit 31.4 Result Diagram: 05/10/17 0541 Imaging Last Impressions Knee X-Ray 05/09/17 8456 Signed Impressions: Service Date/Time: Tuesday, May 09, 2017 10:05 - CONCLUSION: 1. Status post right knee arthroplasty in anatomic alignment without significant acute bony fracture. Aaron Dimas MD Assessment and Plan Problem List: (1) GERD (gastroesophageal reflux disease) ICD Code: K21.9 - GERD (gastroesophageal reflux disease) Status: Acute (2) Hypertension ICD Code: I10 - Hypertension Status: Acute (3) Hyperlipidemia ICD Code: E78.5 - Hyperlipidemia Status: Acute (4) DM (diabetes mellitus) ICD Code: E11.9 - DM (diabetes mellitus) Status: Acute (5) Anxiety ICD Code: F41.9 - Anxiety Status: Acute (6) Osteoarthritis of right knee ICD Code: M17.11 - Unilateral primary osteoarthritis, right knee Assessment and Plan Patient is a 76-year-old female with primary medical history of HTN, DM 2, HLD, osteoarthritis who came into the hospital for surgical intervention secondary to right knee pain. Patient is status post right total knee arthroplasty by Dr. Acosta. Consulted for medical management. Status post right total knee arthroplasty - Managed by orthopedic team - PT eval and treat - Pain management. May give morphine for breakthrough pain with Benadryl, oxycodone Pneumonia, aspiration suspected - Cough, wheezing, rhonchi - CXR ordered - DuoNeb's 3 times a day, DuoNeb's when necessary - Incentive spirometry, Acapella HTN HLD - Continue home medication atorvastatin 20 mg, furosemide 20 mg, metoprolol 12.5 mg twice a day, hydrochlorothiazide 25 mg daily, losartan 320 mg - Monitor BP trend DM 2, chronic - Patient sticking home Lantus medication 70 units daily at bedtime. - Start Levemir 5 units daily - Continue insulin sliding scale - Monitor Accu-Cheks. Monitor for hypoglycemia. DVT prop Xarelto This note was transcribed by tres Goode. I, Dr. Nils Bowser personally performed the history, physical exam, and medical decision making; and confirmed the accuracy of the information in the transcribed note. Authenticated by Dr. Nils Bowser on 05/10/17 at 18:11. Code Status Full code Discussed Condition With Patient, nursing Problem Qualifiers (1) Osteoarthritis of right knee: Qualified Codes: M17.11 - Unilateral primary osteoarthritis, right knee Av Hamilton May 10, 2017 17:56 Nils Benoit MD May 10, 2017 17:57
[2017-05-10] MEDS ORDERED: RESP: ALBUTEROL 2.5 MG/IPRATROPIUM 0.5 MG NEB (PRN) NEB (18:15)
--- NOTE | 2017-05-10 20:30 | RADRPT ---
EXAM DATE/TIME: 05/10/2017 19:20 [place] COMPARISON: CHEST SINGLE AP, August 02, 2014, 15:01. INDICATIONS : Congestion MEDICAL HISTORY : Diabetes mellitus type 2. Hypertension. SURGICAL HISTORY : Total knee replacement, right. Appendectomy. Cholecystectomy.Hysterectomy. ENCOUNTER: Initial ACUITY: 1 day PAIN SCORE: 0/10 LOCATION: Bilateral chest FINDINGS: A single view of the chest demonstrates the lungs to be symmetrically aerated without evidence of mas s, infiltrate or effusion. The cardiomediastinal contours are unremarkable. Osseous structures are intact. CONCLUSION: Normal examination. Ok Sanders MD on May 10, 2017 at 20:29 Board Certified Radiologist. This report was verified electronically.
[2017-05-10] MEDS: SENNOSIDES 8.6 MG TAB PO SCH (23:50)
[2017-05-11] VITALS (7 sets, daily range): BP systolic 107–157; BP diastolic 43–58; PULSE 79–99; RESP 16–21; TEMP 95.9–99.5; O2SAT 89–99
--- NOTE | 2017-05-11 08:28 | HHI.DCPOC ---
Discharge Care Plan Diagnosis: (1) Osteoarthritis of right knee Your Health Problems Are: Incision/Drains Swelling Goals to Promote Your Health * To prevent worsening of your condition and complications * To maintain your health at the optimal level Directions to Meet Your Goals Take your medications as prescribed Follow your dietary instruction Follow activity as directed Keep your appointments as scheduled Take your immunizations and boosters as scheduled If your symptoms worsen call your PCP, if no PCP go to Urgent Care Center or Emergency Room Smoking is Dangerous to Your Health. Avoid second hand smoke Call the 24-hour hour crisis hotline for domestic abuse at Michelle Carson May 11, 2017 08:28
--- NOTE | 2017-05-11 08:34 | PD.ORT.PN ---
Subjective Subjective Remarks She continues to state she has substantial knee pain. She feels 'terribly tired ' and 'just bad'. When asked for specific symptoms she repeats that she is tired and exhausted. She did not get out of bed yesterday at all. She continues to have a persisting cough. A chest xray was ordered yesterday. She denies any new radiating leg pain, fever, SOB, CP or abd pain. Objective Vitals Vital Signs Date Time Temp Pulse Resp B/P (MAP) Pulse Ox O2 Delivery O2 Flow Rate FiO2 05/11/17 07:56 98.5 79 21 127/43 (71) 96 05/11/17 04:06 99.0 80 16 107/50 (69) 94 05/11/17 00:06 99.5 79 16 157/58 (91) 94 05/10/17 21:38 93 05/10/17 20:05 100.8 77 16 148/57 (87) 95 05/10/17 16:00 96.4 71 19 133/74 (93) 93 05/10/17 13:02 92 05/10/17 11:20 99.1 71 19 116/43 (67) 95 05/10/17 10:40 18 I/O 05/10/17 05/10/17 05/10/17 05/11/17 05/11/17 05/11/17 07:00 15:00 23:00 07:00 15:00 23:00 Intake Total 1461 ml 200 ml 300 ml 240 ml Output Total 225 ml 250 ml 701 ml Balance 1236 ml -50 ml -401 ml 240 ml Intake Oral 240 ml 200 ml 300 ml 240 ml IV Total 1221 ml Output Urine Total 225 ml 250 ml 701 ml # Voids 3 # Bowel Movements 0 0 0 0 Result Diagram: 05/10/17 0541 Procedures Right total knee arthroplasty Objective Remarks Laying in bed, NAD VSS Slight cough RLE Dressing c/d/i, no new drainage, no drain, mild to moderate swelling, no erythema +motor at, +sens distal, +nvi Neg homans sign, calf supple Assessment & Plan Ortho Post Op Day #: 2 Problem List: (1) Osteoarthritis of right knee ICD Codes: M17.11 - Unilateral primary osteoarthritis, right knee Qualifiers: Qualified Codes: M17.11 - Unilateral primary osteoarthritis, right knee Assessment and Plan pod#2 s/p R TKA Continued postop knee pain. She did not get out of bed yesterday. I highly encouraged bed to chair and at least 2 episodes of ambulating with assistance today. Chest xray negative but symptomatically she has mild wet cough likely from being in bed all day for 2 days. IS highly encouraged. 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 Hold dressing changes unless saturated. Xarelto 10mg qd for 2 weeks. PT - WBAT RLE, TKA protocol. CPM bid. Ambulate 1-2 times daily. She will need substantial motivation. Medical management diabetes. We appreciate their input. D/C planning, [facility] monday. Michelle Carson May 11, 2017 08:34
[2017-05-11] MEDS: RESP: ALBUTEROL 2.5 MG/IPRATROPIUM 0.5 MG NEB (SCH) NEB ×3 (08:51→19:53)
[2017-05-11] MEDS: INSULIN ASPART SUPPLEMENTAL SCALE SQ SCH ×4 (09:16→21:00)
[2017-05-11] MEDS: MAGNESIUM HYDROXIDE SUSP 30 ML CUP PO SCH ×2 (09:18→21:07)
[2017-05-11] MEDS: ATORVASTATIN 20 MG TAB PO SCH (09:18)
[2017-05-11] MEDS: ESCITALOPRAM OXALATE 10 MG TAB PO SCH (09:18)
[2017-05-11] MEDS: PANTOPRAZOLE SOD 40 MG DELAYED RELEASE TAB PO SCH (09:19)
[2017-05-11] MEDS: RIVAROXABAN 10 MG TAB PO SCH (09:19)
[2017-05-11] MEDS: FUROSEMIDE 20 MG TAB PO SCH (09:19)
[2017-05-11] MEDS: VALSARTAN 160 MG TAB PO SCH (09:20)
[2017-05-11] MEDS: SODIUM CHLORIDE 0.9% FLUSH 5 ML FLUSH IVF SCH ×2 (09:20→21:00)
[2017-05-11] MEDS: HYDROCHLOROTHIAZIDE 25 MG TAB PO SCH (09:20)
[2017-05-11] MEDS: METOPROLOL TARTRATE 25 MG TAB PO SCH ×2 (09:20→21:07)
[2017-05-11] MEDS: LACTATED RINGER'S 1000 ML INJ 1,000 ML IV SCH (11:27)
[2017-05-11] MEDS ORDERED: INSULIN DETEMIR 100 UNITS/ML VIAL SQ SCH (21:00)
[2017-05-11] MEDS: SENNOSIDES 8.6 MG TAB PO SCH (21:07)
[2017-05-11 21:18] LABS: BASOPHIL # 0.1 TH/MM3 (0-0.2); BASOPHIL % 0.6 % (0.0-2.0); EOSINOPHIL % 0.2 % (0.0-4.0); HEMATOCRIT 31.2 % (35.0-46.0); HEMO FLAGS DIFF FINAL; LYMPH % 24.6 % (9.0-44.0); LYMPHOCYTE # 3.2 TH/MM3 (1.0-4.8); MEAN CELL VOLUME 91.8 FL (80.0-100.0); MEAN CORPUSCULAR HEMOGLOBIN 30.4 PG (27.0-34.0); MEAN CORPUSCULAR HGB CONC 33.1 % (32.0-36.0); MONO % 13.6 % (0.0-8.0); PLATELET COUNT 170 TH/MM3 (150-450); RED BLOOD COUNT 3.39 MIL/MM3 (4.00-5.30); RED CELL DISTRIBUTION WIDTH 13.2 % (11.6-17.2); WHITE BLOOD COUNT 13.1 TH/MM3 (4.0-11.0)
[2017-05-11 21:45] LABS: ANION GAP 11 MEQ/L (5-15); AST (GOT) 95 U/L (15-37); BICARBONATE 23.4 MEQ/L (21.0-32.0); BLOOD UREA NITROGEN 29 MG/DL (7-18); CHLORIDE 97 MEQ/L (98-107); GLOMERULAR FILTRATION RATE 27 ML/MIN (>89); MAGNESIUM 2.8 MG/DL (1.5-2.5); POTASSIUM 3.9 MEQ/L (3.5-5.1); SODIUM (NA) 131 MEQ/L (136-145)
[2017-05-11 21:47] LABS: ALT (GPT) 38 U/L (10-53)
[2017-05-11 21:48] LABS: ALKALINE PHOSPHATASE 96 U/L (45-117); TOTAL BILIRUBIN ADULT 0.7 MG/DL (0.2-1.0)
[2017-05-12] VITALS: BP 143/63; PULSE 78; RESP 16; TEMP 97.7; O2SAT 95
--- NOTE | 2017-05-12 01:22 | HHI.PR ---
Subjective Remarks Late entry - patient seen on 05/11/17 at 1 pm Patient states that feels much better pain is controlled denies fevers/chills cough much improved Objective Vitals Vital Signs Date Time Temp Pulse Resp B/P (MAP) Pulse Ox O2 Delivery O2 Flow Rate FiO2 05/12/17 00:00 97.7 78 16 143/63 (89) 95 05/11/17 19:15 96.5 82 18 126/55 (78) 99 05/11/17 16:36 96 Nasal Cannula 2.00 05/11/17 15:00 97.1 82 18 121/55 (77) 89 05/11/17 11:39 95.9 99 21 142/56 (84) 95 05/11/17 08:30 Room Air 05/11/17 07:56 98.5 79 21 127/43 (71) 96 05/11/17 04:06 99.0 80 16 107/50 (69) 94 I/O 05/11/17 05/11/17 05/11/17 05/12/17 05/12/17 05/12/17 07:00 15:00 23:00 07:00 15:00 23:00 Intake Total 240 ml 600 ml 480 ml Balance 240 ml 600 ml 480 ml Intake Oral 240 ml 600 ml 480 ml # Voids 3 2 1 # Bowel Movements 0 0 0 Result Diagram: 05/11/17203305/11/172033 Imaging Last Impressions Chest X-Ray 05/10/17 0000 Signed Impressions: Service Date/Time: Wednesday, May 10, 2017 19:20 - CONCLUSION: Normal examination. Ok Sanders MD Knee X-Ray 05/09/1727 Signed Impressions: Service Date/Time: Tuesday, May 09, 2017 10:05 - CONCLUSION: 1. Status post right knee arthroplasty in anatomic alignment without significant acute bony fracture. Aaron Dimas MD Objective Remarks AAOx3 mild wheezing on right lower lung field. A/P Problem List: (1) GERD (gastroesophageal reflux disease) ICD Code: K21.9 - GERD (gastroesophageal reflux disease) Status: Acute (2) Hypertension ICD Code: I10 - Hypertension Status: Acute (3) Hyperlipidemia ICD Code: E78.5 - Hyperlipidemia Status: Acute (4) DM (diabetes mellitus) ICD Code: E11.9 - DM (diabetes mellitus) Status: Acute (5) Anxiety ICD Code: F41.9 - Anxiety Status: Acute (6) Osteoarthritis of right knee ICD Code: M17.11 - Unilateral primary osteoarthritis, right knee Assessment and Plan Patient is a 76-year-old female with primary medical history of HTN, DM 2, HLD, osteoarthritis who came into the hospital for surgical intervention secondary to right knee pain. Patient is status post right total knee arthroplasty by Dr. Acosta. Consulted for medical management. Status post right total knee arthroplasty - Managed by orthopedic team - PT eval and treat - Pain management. May give morphine for breakthrough pain with Benadryl, oxycodone 05/11 pain seems better controlled. Pneumonia, aspiration suspected - Cough, wheezing, rhonchi - CXR ordered ---> normal examination - DuoNeb's 3 times a day, DuoNeb's when necessary - Incentive spirometry, Acapella - 05/11 no evidence of pneumonia on cxr, patient afebrile, continue acapella and duoneb treatments. HTN HLD - Continue home medication atorvastatin 20 mg, furosemide 20 mg, metoprolol 12.5 mg twice a day, hydrochlorothiazide 25 mg daily, losartan 320 mg - Monitor BP trend DM 2, chronic - Patient sticking home Lantus medication 70 units daily at bedtime. - Start Levemir 5 units daily - Continue insulin sliding scale - Monitor Accu-Cheks. Monitor for hypoglycemia. - BP very elevated - 05/11 Blood sugars very elevated, shara increase Levemir to 15 units SQ BID. Continue SSI with insulin Novolog. DVT prop Xarelto Problem Qualifiers (1) Osteoarthritis of right knee: Qualified Codes: M17.11 - Unilateral primary osteoarthritis, right knee Nils Benoit MD May 12, 2017 01:22
[2017-05-12 04:00] VITALS: BP 126/49; PULSE 85; RESP 15; TEMP 98.9; O2SAT 97
[2017-05-12] MEDS: oxyCODONE/ACETAMINOPHEN 5 MG/325 MG TAB PO PRN ×3 (05:21→16:49)
[2017-05-12 05:47] LABS: BLOOD, URINE SMALL (NEG); COMMENT (UR) CULT NOT INDICATED; CULTURE IF INDICATED CULT NOT INDICATED; GLUCOSE,URINE 300 mg/dL (NEG); KETONE, URINE NEG (NEG); NITRITE,URINE NEG (NEG); TRANSITIONAL EPI CELLS, URINE <1 /hpf; URINE COLOR LIGHT-YELLOW (YELLW/STRAW)
[2017-05-12 07:05] LABS: HEMATOCRIT 25.9 % (35.0-46.0); MEAN CELL VOLUME 89.4 FL (80.0-100.0); MEAN CORPUSCULAR HEMOGLOBIN 30.4 PG (27.0-34.0); MEAN CORPUSCULAR HGB CONC 34.1 % (32.0-36.0); PLATELET COUNT 142 TH/MM3 (150-450); RED BLOOD COUNT 2.89 MIL/MM3 (4.00-5.30); RED CELL DISTRIBUTION WIDTH 12.9 % (11.6-17.2); REVIEW FLAG FINAL; WHITE BLOOD COUNT 9.2 TH/MM3 (4.0-11.0)
[2017-05-12 07:13] LABS: POTASSIUM 4.3 MEQ/L (3.5-5.1)
--- NOTE | 2017-05-12 07:46 | PD.ORT.PN ---
Subjective Subjective Remarks Doing a little better today. She still notes lack of energy. No new leg pain. Pain pills are helping 'a little bit more'. She did get out of bed once yesterday. Her cough has improved. She denies any shortness of breath. She also denies fever, CP or abd pain. Objective Vitals Vital Signs Date Time Temp Pulse Resp B/P (MAP) Pulse Ox O2 Delivery O2 Flow Rate FiO2 05/12/17 04:00 98.9 85 15 126/49 (74) 97 05/12/17 00:00 97.7 78 16 143/63 (89) 95 05/11/17 19:15 96.5 82 18 126/55 (78) 99 05/11/17 16:36 96 Nasal Cannula 2.00 05/11/17 15:00 97.1 82 18 121/55 (77) 89 05/11/17 11:39 95.9 99 21 142/56 (84) 95 05/11/17 08:30 Room Air 05/11/17 07:56 98.5 79 21 127/43 (71) 96 I/O 05/11/17 05/11/17 05/11/17 05/12/17 05/12/17 05/12/17 07:00 15:00 23:00 07:00 15:00 23:00 Intake Total 240 ml 600 ml 480 ml 480 ml Balance 240 ml 600 ml 480 ml 480 ml Intake Oral 240 ml 600 ml 480 ml 480 ml # Voids 3 2 1 3 # Bowel Movements 0 0 0 0 Result Diagram: 05/12/1760505/12/17 0606 Procedures Right total knee arthroplasty Objective Remarks Laying in bed, somnelent but awake and answering questions NAD VSS Cough improved RLE Dressing c/d/i, no new drainage, no drain, mild to moderate swelling, no erythema +motor at, +sens distal, +nvi Neg homans sign, calf supple Assessment & Plan Ortho Post Op Day #: 3 Problem List: (1) Osteoarthritis of right knee ICD Codes: M17.11 - Unilateral primary osteoarthritis, right knee Qualifiers: Qualified Codes: M17.11 - Unilateral primary osteoarthritis, right knee Assessment and Plan pod#3 s/p R TKA Ortho stable. Pain better controlled today. POstop anemia, Hg 8.8 - Her BPs are stable. WIll hold off on transfusing but likely should recheck outpt Hg. Continue IS daily. Po pain meds Hold dressing changes unless saturated. Xarelto 10mg qd for 2 weeks. PT - WBAT RLE, TKA protocol. CPM bid. Ambulate 1-2 times daily. She will need substantial motivation. Medical management diabetes. We appreciate their input. Ok to d/c to SNF today. F/U in 2 weeks as scheduled. Michelle Carson May 12, 2017 07:46
[2017-05-12 08:00] VITALS: BP 137/60; PULSE 69; RESP 18; TEMP 98.7; O2SAT 95
[2017-05-12] MEDS: RESP: ALBUTEROL 2.5 MG/IPRATROPIUM 0.5 MG NEB (SCH) NEB ×2 (08:31→13:10)
[2017-05-12 08:34] VITALS: O2SAT 97
[2017-05-12] MEDS ORDERED: INSULIN DETEMIR 100 UNITS/ML VIAL SQ SCH ×2 (09:00→21:00)
[2017-05-12] MEDS: MAGNESIUM HYDROXIDE SUSP 30 ML CUP PO SCH (09:00)
[2017-05-12] MEDS: FUROSEMIDE 20 MG TAB PO SCH (09:55)
[2017-05-12] MEDS: PANTOPRAZOLE SOD 40 MG DELAYED RELEASE TAB PO SCH (09:56)
[2017-05-12] MEDS: HYDROCHLOROTHIAZIDE 25 MG TAB PO SCH (09:56)
[2017-05-12] MEDS: METOPROLOL TARTRATE 25 MG TAB PO SCH (09:56)
[2017-05-12] MEDS: ATORVASTATIN 20 MG TAB PO SCH (09:56)
[2017-05-12] MEDS: ESCITALOPRAM OXALATE 10 MG TAB PO SCH (09:56)
[2017-05-12] MEDS: RIVAROXABAN 10 MG TAB PO SCH (09:56)
[2017-05-12] MEDS: SODIUM CHLORIDE 0.9% FLUSH 5 ML FLUSH IVF SCH (09:58)
[2017-05-12] MEDS: INSULIN ASPART SUPPLEMENTAL SCALE SQ SCH ×2 (09:58→13:18)
[2017-05-12] MEDS: VALSARTAN 160 MG TAB PO SCH (09:58)
[2017-05-12 12:00] VITALS: BP 117/49; PULSE 64; RESP 18; TEMP 97.4; O2SAT 97
--- NOTE | 2017-05-12 14:21 | HHI.PR ---
Subjective Remarks denies cp/sob c/o of cough with sputum production afebrile with good oxygen saturation Objective Vitals Vital Signs Date Time Temp Pulse Resp B/P (MAP) Pulse Ox O2 Delivery O2 Flow Rate FiO2 05/12/17 12:00 97.4 64 18 117/49 (71) 97 05/12/17 08:34 97 Nasal Cannula 2.00 05/12/17 08:00 98.7 69 18 137/60 (85) 95 05/12/17 04:00 98.9 85 15 126/49 (74) 97 05/12/17 00:00 97.7 78 16 143/63 (89) 95 05/11/17 19:15 96.5 82 18 126/55 (78) 99 05/11/17 16:36 96 Nasal Cannula 2.00 05/11/17 15:00 97.1 82 18 121/55 (77) 89 I/O 05/11/17 05/11/17 05/11/17 05/12/17 05/12/17 05/12/17 07:00 15:00 23:00 07:00 15:00 23:00 Intake Total 240 ml 600 ml 480 ml 480 ml Balance 240 ml 600 ml 480 ml 480 ml Intake Oral 240 ml 600 ml 480 ml 480 ml # Voids 3 2 1 3 # Bowel Movements 0 0 0 0 Result Diagram: 05/12/1760505/12/17 06 Objective Remarks AAOx3 Clear lungs to auscultation no edema in lower extremities A/P Problem List: (1) GERD (gastroesophageal reflux disease) ICD Code: K21.9 - GERD (gastroesophageal reflux disease) Status: Acute (2) Hypertension ICD Code: I10 - Hypertension Status: Acute (3) Hyperlipidemia ICD Code: E78.5 - Hyperlipidemia Status: Acute (4) DM (diabetes mellitus) ICD Code: E11.9 - DM (diabetes mellitus) Status: Acute (5) Anxiety ICD Code: F41.9 - Anxiety Status: Acute (6) Osteoarthritis of right knee ICD Code: M17.11 - Unilateral primary osteoarthritis, right knee Assessment and Plan Patient is a 76-year-old female with primary medical history of HTN, DM 2, HLD, osteoarthritis who came into the hospital for surgical intervention secondary to right knee pain. Patient is status post right total knee arthroplasty by Dr. Acosta. Consulted for medical management. Status post right total knee arthroplasty - Managed by orthopedic team - PT eval and treat - Pain management. May give morphine for breakthrough pain with Benadryl, oxycodone 05/11 pain seems better controlled. Pneumonia, aspiration suspected - Cough, wheezing, rhonchi - CXR ordered ---> normal examination - DuoNeb's 3 times a day, DuoNeb's when necessary - Incentive spirometry, Acapella - 05/11 no evidence of pneumonia on cxr, patient afebrile, continue acapella and duoneb treatments. HTN HLD - Continue home medication atorvastatin 20 mg, furosemide 20 mg, metoprolol 12.5 mg twice a day, hydrochlorothiazide 25 mg daily, losartan 320 mg - Monitor BP trend DM 2, chronic - Patient sticking home Lantus medication 70 units daily at bedtime. - Start Levemir 5 units daily - Continue insulin sliding scale - Monitor Accu-Cheks. Monitor for hypoglycemia. - BP very elevated - 05/11 Blood sugars very elevated, shara increase Levemir to 15 units SQ BID. Continue SSI with insulin Novolog. Cough - Will dC on Robitussin AC. DVT prop Xarelto Problem Qualifiers (1) Osteoarthritis of right knee: Qualified Codes: M17.11 - Unilateral primary osteoarthritis, right knee Nils Benoit MD May 12, 2017 14:21
[2017-05-12 16:00] VITALS: BP 115/49; PULSE 65; RESP 18; TEMP 97.1; O2SAT 97
== END 2017-05-12 17:06 | DRG 470 ==
LOC: HSDI 05:21 → N06B 14:24
PROVIDERS: ADMIT Orthopaedic Surgery Orthopaedic Surgery of the Spine; ATTEND Orthopaedic Surgery Orthopaedic Surgery of the Spine
PROC: 3E0T3BZ Introduction of Anesthetic Agent into Peripheral Nerves and Plexi, Percutaneous Approach (ICD-10-PCS; 2017-05-09)
PROC: 0SRC0J9 Replacement of Right Knee Joint with Synthetic Substitute, Cemented, Open Approach (ICD-10-PCS; principal; 2017-05-09 07:14)
DX: M17.11 Unilateral primary osteoarthritis, right knee (principal); D62 Acute posthemorrhagic anemia; E11.9 Type 2 diabetes mellitus without complications; E78.5 Hyperlipidemia, unspecified; F41.9 Anxiety disorder, unspecified; I10 Essential (primary) hypertension; K21.9 Gastro-esophageal reflux disease without esophagitis; Z79.4 Long term (current) use of insulin; L27.1 Localized skin eruption due to drugs and medicaments taken internally; T40.2X5A Adverse effect of other opioids, initial encounter
CPT/HCPCS: 71010; 73560; 80048; 80053; 81001; 82948; 83735; 84100; 85014; 85018; 85025; 85027; 86850; 86900; 86901; 86920; 94150; 94640; 94664; 94667; 94668; C1776; C9290; J0131; J0360; J0690; J1580; J1815; J2250; J2405; J2550; J2710; J3010; J3370; J7050; J7120; L1830

== ENCOUNTER 2017-05-29 12:01 | Emergency (ER) | payer MEDICARE, BC ==
[~2017-05-29] VITALS: Ht 160 cm; Wt 92.0 kg
[~2017-05-29 12:01] MED LIST changes: +ADJUSTABLE COMM1 MIS; +CPMMACHINE; +OXYC1TAB63 PO; +WALKER WHEELS/F1 MIS; +XARE10TA PO
[2017-05-29 12:14] VITALS: BP 116/54; PULSE 65; RESP 18; TEMP 98; O2SAT 98
[2017-05-29 12:19] VITALS: BP 116/54; PULSE 58; RESP 18; TEMP 98; O2SAT 98
[2017-05-29] MEDS ORDERED: SODIUM CHLORID 0.9% 500 ML INJ 500 ML IV ONE (12:30)
[2017-05-29] MEDS ORDERED: SODIUM CHLORIDE 0.9% FLUSH 10 ML FLUSH IVF PRN (12:30)
--- NOTE | 2017-05-29 12:48 | PD ---
HPI Chief Complaint: General Weakness Time Seen by Provider: 12:08 Travel History International Travel<30 days: No Contact w/Intl Traveler<30days: No Traveled to known affect area: No History of Present Illness HPI The patient is a 76-year-old female who presents to the emergency department for evaluation of elevated and low blood sugars. The patient underwent total right knee arthroplasty by her orthopedic surgeon, Dr. Gerald Acosta, at the beginning of the month. The patient was subsequently discharged home, however, has difficulty getting to the kitchen to make meals. Therefore, the patient has been eating TV dinners and is in her blood sugars have been running high sometimes in the 300s to 500s. The patient is currently on Lantus 70 units at night and has been taking her Lantus as directed. The patient also states she had one low blood sugar of 44. The patient called her primary physician, Dr. Adrian, who referred her to the emergency department. She also complains of mild dysuria, feels like there is a "pin "and her bladder with urination. She denies any chest pain, shortness breath, nausea, vomiting, or abdominal pain. The patient does note mild swelling of the right lower extremity after the surgery, has a history of previous DVT, and is not currently anticoagulated. PFSH Past Medical History Hx Anticoagulant Therapy: Yes (asa) Arthritis: Yes Blood Disorders: No Anxiety: Yes Depression: Yes Cancer: Yes (MELANOMA NOSE AND LEFT HIP) Cardiovascular Problems: Yes High Cholesterol: Yes Chemotherapy: No Diabetes: Yes Patient Takes Glucophage: No Diminished Hearing: No Endocrine: Yes Gastrointestinal Disorders: Yes (GERD) GERD: Yes Glaucoma: No Genitourinary: Yes (FREQUENCY) Headaches: Yes (DUE TO FLU) Hepatitis: No Hiatal Hernia: No Hypertension: Yes Immune Disorder: No Implanted Vascular Access Dvce: Yes Kidney Stones: Yes Medical other: No Musculoskeletal: Yes (OA) Neurologic: No Psychiatric: No Reproductive: No Respiratory: Yes (BRONCHITIS, PE) Integumentary: Yes (ON THE NOSE) Immunizations Current: Yes Radiation Therapy: No Shingles: Yes Thyroid Disease: No ?: Not Menopausal: Yes : 5 Para: 2 Miscarriage: 3 Tubal Ligation: Yes Past Surgical History Abdominal Surgery: Yes (HYSTERECTOMY 1982,TUBAL LIGATION) AICD: No Appendectomy: Yes Body Medical Devices: PLATE IN NECK Cholecystectomy: Yes Eye Surgery: Yes (JOVAN. CATARACT EXTRACT.) Hysterectomy: Yes Joint Replacement: Yes (BILATERAL HIP ) Neurologic Surgery: Yes (LUMBAR LAMI X2) Pacemaker: No Other Surgery: Yes (LUMPECTOMY RIGHT BREAST) Social History Alcohol Use: No Tobacco Use: No Substance Use: No Allergies-Medications (Allergen,Severity, Reaction): Coded Allergies: No Known Allergies (Unverified , 05/29/17) Reported Meds & Prescriptions Reported Meds & Active Scripts Active Adjustable Commode 3-in-1 (Device) 1 Mis Mis Ea .ROUTE DIRECTED CPM-Continuous Passive Motion Machine 1 Ea Device Ea .ROUTE DIRECTED Walker with Front Wheels (Device) 1 Mis Mis Ea .ROUTE DIRECTED Xarelto (Rivaroxaban) 10 Mg Tab 10 Mg PO Q24H Oxycodone-Acetaminophen 5-325 mg Tab 1 Tab PO Q4H PRN Prednisone 20 Mg Tab 20 Mg PO DAILY Reported Pantoprazole (Pantoprazole Sodium) 40 Mg Tab 40 Mg PO DAILY Meloxicam 15 Mg Tab 15 Mg PO DAILY Fish Oil 1,200 mg Softgel (Cambria-3S/Dha/Epa/Fish Oil) 1 Each Capsule 1 Cap PO DAILY Coq-10 (Coenzyme Q10 (Ubidecarenone)) 50 Mg Cap 200 Mg PO DAILY Aspirin 81 Mg Chew 81 Mg CHEW DAILY Lantus Inj (Insulin Glargine) 1,000 Unit/10 Ml Vial 70 Units SQ HS Glucosamine 1,500 Mg Tab 2,000 Mg PO DAILY Metoprolol Tartrate 25 Mg Tab 12.5 Mg PO BID Valsartan-Hydrochlorothiazide 320-25 Mg Tab 1 Tab PO DAILY Furosemide 20 Mg Tab 20 Mg PO DAILY Escitalopram (Escitalopram Oxalate) 5 Mg Tab 5 Mg PO DAILY Atorvastatin (Atorvastatin Calcium) 20 Mg Tab 20 Mg PO DAILY Review of Systems Except as stated in HPI: all other systems reviewed are Neg General / Constitutional: No: Fever Cardiovascular: No: Chest Pain or Discomfort Respiratory: No: Shortness of Breath Gastrointestinal: No: Nausea, Vomiting, Abdominal Pain Genitourinary: Positive: Dysuria Musculoskeletal: Positive: Weakness, Edema Physical Exam Narrative GENERAL: Awake, alert, pleasant 76-year-old female who appears her stated age and is in no acute respiratory distress. SKIN: Focused skin assessment warm/dry. HEAD: Atraumatic. Normocephalic. EYES: Pupils equal and round. No scleral icterus. No injection or drainage. ENT: No nasal bleeding or discharge. Mucous membranes pink and moist. NECK: Trachea midline. No JVD. CARDIOVASCULAR: Regular rate and rhythm. No murmur appreciated. RESPIRATORY: No accessory muscle use. Clear to auscultation. Breath sounds equal bilaterally. GASTROINTESTINAL: Abdomen soft, non-tender, nondistended. Hepatic and splenic margins not palpable. MUSCULOSKELETAL: Healing scar of the anterior aspect of the right knee with Steri-Strips in place. Mild edema and swelling of the right lower extremity when compared to the left lower extremity. NEUROLOGICAL: Awake and alert. No obvious cranial nerve deficits. Motor grossly within normal limits. Normal speech. PSYCHIATRIC: Appropriate mood and affect; insight and judgment normal. Data Data Last Documented VS Vital Signs Date Time Temp Pulse Resp B/P (MAP) Pulse Ox O2 Delivery O2 Flow Rate FiO2 05/29/17 12:19 59 20 98 Room Air 05/29/17 12:19 98.0 116/54 (74) Orders Orders Electrocardiogram (05/29/17 12:22) Complete Blood Count With Diff (05/29/17 12:22) Comprehensive Metabolic Panel (05/29/17 12:22) Magnesium (Mg) (05/29/17 12:22) Beta Hydroxybutyrate (Acetone) (05/29/17 12:22) Lactic Acid (05/29/17 12:22) Urinalysis - C+S If Indicated (05/29/17 12:22) Blood Gas Venous (Vbg) (05/29/17 12:22) Blood Glucose (05/29/17 12:22) Blood Glucose (05/29/17 13:22) Ecg Monitoring (05/29/17 12:22) Iv Access Insert/Monitor (05/29/17 12:22) Oximetry (05/29/17 12:22) NPO (05/29/17 12:22) Sodium Chloride 0.9% Flush (Ns Flush) (05/29/17 12:30) Troponin I (05/29/17 12:22) Lipase (05/29/17 12:22) Sodium Chlorid 0.9% 500 Ml Inj (Ns 500 M (05/29/17 12:30) Us Leg Venous Doppler (05/29/17 ) Urine Culture (05/29/17 12:45) Ed Discharge Order (05/29/17 14:35) Labs Laboratory Tests Test 05/29/17 12:30 05/29/17 12:45 05/29/17 12:50 White Blood Count 6.8 TH/MM3 Red Blood Count 3.36 MIL/MM3 Hemoglobin 10.1 GM/DL Hematocrit 30.8 % Mean Corpuscular Volume 91.6 FL Mean Corpuscular Hemoglobin 30.1 PG Mean Corpuscular Hemoglobin Concent 32.9 % Red Cell Distribution Width 14.3 % Platelet Count 236 TH/MM3 Mean Platelet Volume 9.4 FL Neutrophils (%) (Auto) 65.1 % Lymphocytes (%) (Auto) 23.2 % Monocytes (%) (Auto) 9.7 % Eosinophils (%) (Auto) 1.2 % Basophils (%) (Auto) 0.8 % Neutrophils # (Auto) 4.4 TH/MM3 Lymphocytes # (Auto) 1.6 TH/MM3 Monocytes # (Auto) 0.7 TH/MM3 Eosinophils # (Auto) 0.1 TH/MM3 Basophils # (Auto) 0.1 TH/MM3 CBC Comment DIFF FINAL Differential Comment Blood Urea Nitrogen 32 MG/DL Creatinine 1.29 MG/DL Random Glucose 212 MG/DL Total Protein 6.6 GM/DL Albumin 3.1 GM/DL Calcium Level 9.3 MG/DL Magnesium Level 2.0 MG/DL Alkaline Phosphatase 93 U/L Aspartate Amino Transf (AST/SGOT) 25 U/L Alanine Aminotransferase (ALT/SGPT) 25 U/L Total Bilirubin 0.4 MG/DL Sodium Level 138 MEQ/L Potassium Level 4.0 MEQ/L Chloride Level 107 MEQ/L Carbon Dioxide Level 19.0 MEQ/L Anion Gap 12 MEQ/L Estimat Glomerular Filtration Rate 40 ML/MIN Troponin I LESS THAN 0.02 NG/ML Lipase 374 U/L B-Hydroxybutyrate 0.14 MMOL/L Urine Color LIGHT-YELLOW Urine Turbidity CLEAR Urine pH 5.0 Urine Specific [place] 1.008 Urine Protein NEG mg/dL Urine Glucose (UA) 70 mg/dL Urine Ketones NEG mg/dL Urine Occult Blood NEG Urine Nitrite NEG Urine Bilirubin NEG Urine Urobilinogen LESS THAN 2.0 MG/DL Urine Leukocyte Esterase TRACE Urine WBC 1 /hpf Urine Squamous Epithelial Cells <1 /hpf Urine Bacteria RARE /hpf Urine Mucus FEW /lpf Microscopic Urinalysis Comment CATH-CULTURE IND Blood Gas Puncture Site LINE Blood Gas Patient Temperature 98.6 Venous Blood pH 7.46 Venous Blood Partial Pressure CO2 30 mmHg Venous Blood Partial Pressure O2 44 mmHg Venous Blood HCO3 21 mmol/L Venous Blood Oxygen Saturation 80 % Venous Blood Oxygen Content 11.3 Vol % Venous Blood Base Excess -1.9 mmol/L Blood Gas Inspired Oxygen 21 % Lactic Acid Level 2.3 mmol/L MDM Medical Decision Making Medical Screen Exam Complete: Yes Emergency Medical Condition: Yes Medical Record Reviewed: Yes Differential Diagnosis Differential diagnosis includes UTI, hyperglycemia, hypoglycemia, medication side effect, postoperative edema, DVT, electrolyte abnormality. Narrative Course IV was established, labs are drawn and sent, and the patient was placed on cardiac telemetry monitoring and continuous pulse oximetry monitoring. Ultrasound of the right lower extremity was ordered. The patient was administered IV fluids. UA was sent to lab. The patient's labs reveal a creatinine 1.36, when reviewed on the EMR, there is improvement from previous creatinines which appear to be baseline between 1.7 1.8. White count is unremarkable. UA reveals leukocyte esterase, otherwise unremarkable. The patient's blood sugar was noted be 212, no significant hyper or hypoglycemia. The patient's blood sugar is slightly elevated, however, VBG reveals no evidence of DKA. The patient is within 30 days postop, therefore, our courtesy call was placed to the patient's orthopedist, Dr. Gerald Acosta. A call was also placed to the patient's primary physician, Dr. Adrian in regards to outpatient follow-up. I discussed the patient with Dr. Adrian he will will see the patient tomorrow, on Monday. I discussed the patient with the physician accounting administrative assistant for Dr. Pena who is aware the patient was in the emergency department. The patient is stable for outpatient follow-up tomorrow, she will be provided a copy of her lab results at discharge. Diagnosis Primary Impression: Hyperglycemia Patient Instructions: General Instructions Additional Instructions: Please provide the patient a copy of her labs and ultrasound results at discharge. Follow-up with your orthopedist as previously scheduled. Follow-up with her primary physician. Return if symptoms worsen or progress. Med/Other Pt SpecificInfo: No Change to Meds Disposition: 01 DISCHARGE HOME Condition: Stable Ghassan Garcia MD May 29, 2017 12:48
[2017-05-29 13:22] LABS: AUTOMATED NEUTROPHIL # 4.4 TH/MM3 (1.8-7.7); BASOPHIL # 0.1 TH/MM3 (0-0.2); BASOPHIL % 0.8 % (0.0-2.0); EOSINOPHIL # 0.1 TH/MM3 (0-0.4); EOSINOPHIL % 1.2 % (0.0-4.0); HEMATOCRIT 30.8 % (35.0-46.0); HEMOGLOBIN 10.1 GM/DL (11.6-15.3); LYMPH % 23.2 % (9.0-44.0); LYMPHOCYTE # 1.6 TH/MM3 (1.0-4.8); MEAN CELL VOLUME 91.6 FL (80.0-100.0); MEAN CORPUSCULAR HEMOGLOBIN 30.1 PG (27.0-34.0); MEAN CORPUSCULAR HGB CONC 32.9 % (32.0-36.0); MEAN PLATELET VOLUME 9.4 FL (7.0-11.0); MONO % 9.7 % (0.0-8.0); MONOCYTE # 0.7 TH/MM3 (0-0.9); NEUT % 65.1 % (16.0-70.0); PLATELET COUNT 236 TH/MM3 (150-450); RED BLOOD COUNT 3.36 MIL/MM3 (4.00-5.30); RED CELL DISTRIBUTION WIDTH 14.3 % (11.6-17.2); WHITE BLOOD COUNT 6.8 TH/MM3 (4.0-11.0)
[2017-05-29 13:30] VITALS: BP 124/78; PULSE 78; RESP 20; O2SAT 98
[2017-05-29 13:48] LABS: BACTERIA, URINE RARE /hpf; BILIRUBIN, URINE NEG (NEG); BLOOD, URINE NEG (NEG); GLUCOSE,URINE 70 mg/dL (NEG); KETONE, URINE NEG (NEG); MUCUS URINE FEW /lpf (OCC); NITRITE,URINE NEG (NEG); SQUAMOUS EPITHELIAL CELL URINE <1 /hpf (0-5); URINE COLOR LIGHT-YELLOW (YELLW/STRAW); URINE LEUKOCYTE ESTERASE TRACE (NEG)
[2017-05-29 14:11] LABS: ALBUMIN 3.1 GM/DL (3.4-5.0); AST (GOT) 25 U/L (15-37); BLOOD UREA NITROGEN 32 MG/DL (7-18); CALCIUM 9.3 MG/DL (8.5-10.1); CHLORIDE 107 MEQ/L (98-107); CREATININE 1.29 MG/DL (0.50-1.00); GLOMERULAR FILTRATION RATE 40 ML/MIN (>89); GLUCOSE,RANDOM 212 MG/DL (74-106); LIPASE 374 U/L (73-393); SODIUM (NA) 138 MEQ/L (136-145)
[2017-05-29 14:16] LABS: ALKALINE PHOSPHATASE 93 U/L (45-117); ALT (GPT) 25 U/L (10-53); TOTAL BILIRUBIN ADULT 0.4 MG/DL (0.2-1.0); TOTAL PROTEIN 6.6 GM/DL (6.4-8.2); TROPONIN I LESS THAN 0.02 NG/ML (0.02-0.05)
--- NOTE | 2017-05-29 14:30 | RADRPT ---
EXAM DATE/TIME: 05/29/2017 13:51 [facility] COMPARISON: No previous studies available for comparison. EXTERNAL COMPARISON : [facility], US LEG, RIGHT VENOUS DOPPLER, April 19, 2017 INDICATIONS : Right leg edema. MEDICAL HISTORY : Hypercholesterolemia. Osteoporosis. Renal calculi. Bronchitis. Pulmonary embolism. GERD. Arthritis . HTN. Diabetes. Melanoma. Shingles. Depression. Anxiety. Anticoagulant therapy, Aspirin. SURGICAL HISTORY : Tubal ligation. Hysterectomy. Appendectomy. Bilateral cataract extraction. Lumbar lami x2. Cholecyst ectomy. Back surgery. Bilateral hip replacement. Blood transfusions. Right breast lumpectomy. ENCOUNTER: Initial ACUITY: 1 day PAIN SCORE: 2/10 LOCATION: Right leg. TECHNIQUE: Venous ultrasound of the leg was performed from the inguinal ligament to the proximal calf. Real-efrain e, color Doppler and spectral tracing, compression and augmentation techniques were used. FINDINGS: There is normal compressibility of the deep venous system from the inguinal region to the proximal ca lf. No echogenic clot is seen in the lumen of the common femoral, femoral, popliteal, and posterior tibial veins. There is a normal response of the venous system to proximal and distal augmentation an d respiration. CONCLUSION: Negative exam. No sonographic with Doppler findings of deep venous thrombosis. Daryl Vieira MD on May 29, 2017 at 14:28 Board Certified Radiologist. This report was verified electronically.
[2017-05-29 15:46] VITALS: BP 119/62
== END 2017-05-29 15:48 | disposition home or self-care (01) ==
LOC: NEPE 12:01
DX: E11.65 Type 2 diabetes mellitus with hyperglycemia (principal); N39.0 Urinary tract infection, site not specified; B96.1 Klebsiella pneumoniae [K. pneumoniae] as the cause of diseases classified elsewhere; R60.0 Localized edema; I10 Essential (primary) hypertension; Z79.4 Long term (current) use of insulin
CPT/HCPCS: 80053; 81001; 82010; 82805; 83605; 83690; 83735; 84484; 85025; 87077; 87086; 87186; 93971; 96360; 96361; 99285; J7040

== ENCOUNTER 2017-08-22 14:30 | Emergency (ER) | payer MEDICARE, BC ==
[2017-08-22] VITALS (9 sets, daily range): BP systolic 103–240; BP diastolic 50–132; PULSE 63–72; RESP 18–25; TEMP 98.7; O2SAT 95–97
[~2017-08-22 14:30] MED LIST changes: +ASPI-516 CHEW; -ASPI81CH CHEW; -MELO-1 PO; +MELO15TA20 PO
--- NOTE | 2017-08-22 14:57 | PD ---
HPI Chief Complaint: Hypertension Time Seen by Provider: 14:43 Travel History International Travel<30 days: No Contact w/Intl Traveler<30days: No Traveled to known affect area: No History of Present Illness HPI The patient was seen and examined in the presence of the nurse. This patient complains of excessive and uncontrolled hypertension. Current systolic 240. She has history of hypertension and multiple medications. She says for last few days her blood pressures have been running high. She does complain of frontal headache. No thunderclap onset or head injury or fever. Symptoms severity is moderate. No alleviating factors. She is very anxious about her blood pressure. No exacerbating factors. Duration 3 days PFSH Past Medical History Hx Anticoagulant Therapy: Yes (asa) Arthritis: Yes Blood Disorders: No Anxiety: Yes Depression: Yes Cancer: Yes (MELANOMA NOSE AND LEFT HIP) Cardiovascular Problems: Yes High Cholesterol: Yes Chemotherapy: No Diabetes: Yes Diminished Hearing: No Endocrine: Yes Gastrointestinal Disorders: Yes (GERD) GERD: Yes Glaucoma: No Genitourinary: Yes (FREQUENCY) Headaches: Yes (DUE TO FLU) Hepatitis: No Hiatal Hernia: No Hypertension: Yes Immune Disorder: No Implanted Vascular Access Dvce: Yes Kidney Stones: Yes Musculoskeletal: Yes (OA) Neurologic: No Psychiatric: No Reproductive: No Respiratory: Yes (BRONCHITIS, PE) Integumentary: Yes (ON THE NOSE) Immunizations Current: Yes Radiation Therapy: No Shingles: Yes Thyroid Disease: No Menopausal: Yes : 5 Para: 2 Miscarriage: 3 Tubal Ligation: Yes Past Surgical History Abdominal Surgery: Yes (HYSTERECTOMY 1982,TUBAL LIGATION) AICD: No Appendectomy: Yes Body Medical Devices: PLATE IN NECK Cholecystectomy: Yes Eye Surgery: Yes (JOVAN. CATARACT EXTRACT.) Hysterectomy: Yes Joint Replacement: Yes (BILATERAL HIP ) Neurologic Surgery: Yes (LUMBAR LAMI X2) Pacemaker: No Other Surgery: Yes (LUMPECTOMY RIGHT BREAST) Social History Alcohol Use: No Tobacco Use: No Substance Use: No Allergies-Medications (Allergen,Severity, Reaction): Coded Allergies: No Known Allergies (Unverified Adverse Reaction, Unknown, 08/22/17) Reported Meds & Prescriptions Reported Meds & Active Scripts Active Reported Multiple Vitamin 1 Tab 1 Tab PO DAILY Glucosamine (Glucosamine Sulfate) 1,000 Mg Cap 2,000 Mg PO DAILY Pantoprazole (Pantoprazole Sodium) 40 Mg Tab 40 Mg PO DAILY Meloxicam 15 Mg Tab 15 Mg PO DAILY Aspirin 81 Mg Chew 81 Mg CHEW DAILY Lantus Inj (Insulin Glargine) 1,000 Unit/10 Ml Vial 58 Units SQ HS Metoprolol Tartrate 25 Mg Tab 37.5 Mg PO BID Valsartan-Hydrochlorothiazide 320-25 Mg Tab 1 Tab PO DAILY Furosemide 20 Mg Tab 20 Mg PO DAILY Escitalopram (Escitalopram Oxalate) 5 Mg Tab 5 Mg PO DAILY Atorvastatin (Atorvastatin Calcium) 20 Mg Tab 20 Mg PO DAILY Review of Systems General / Constitutional: No: Fever Eyes: No: Visual changes HENT: Positive: Headaches Cardiovascular: No: Chest Pain or Discomfort Respiratory: No: Shortness of Breath Gastrointestinal: No: Abdominal Pain Genitourinary: No: Dysuria Musculoskeletal: No: Pain Skin: No Rash Neurologic: Positive: Headache, No: Weakness Psychiatric: Positive: Anxiety, No: Depression Endocrine: No: Polydipsia Hematologic/Lymphatic: No: Easy Bruising Physical Exam Narrative GENERAL: Well-nourished, well-developed patient in no apparent distress. SKIN: Focused skin assessment reveals no rash and nodules. Skin is Warm and dry. HEAD: Atraumatic. Normocephalic. EYES: Pupils equal and round. No scleral icterus. No injection or drainage. ENT: No nasal bleeding or discharge. Mucous membranes pink and moist. NECK: Trachea midline. No JVD. CARDIOVASCULAR: Regular rate and rhythm. No murmur appreciated. RESPIRATORY: No accessory muscle use. Clear to auscultation. Breath sounds equal bilaterally. GASTROINTESTINAL: Abdomen soft, non-tender, nondistended. Hepatic and splenic margins not palpable. MUSCULOSKELETAL: No obvious deformities. No clubbing. No cyanosis. No edema. NEUROLOGICAL: Awake and alert. No obvious cranial nerve deficits. Motor grossly within normal limits. Normal speech. PSYCHIATRIC: Anxious mood and affect; insight and judgment normal. Data Data Last Documented VS Vital Signs Date Time Temp Pulse Resp B/P (MAP) Pulse Ox O2 Delivery O2 Flow Rate FiO2 08/22/17 16:53 66 20 133/65 (87) 08/22/17 16:47 Room Air 08/22/17 14:57 97 08/22/17 14:[address] Brain W/O Iv Contrast(Rout) (08/22/17 ) Clonidine (Catapres) (08/22/17 15:00) Nifedipine (Procardia) (08/22/17 15:00) Iv Access Insert/Monitor (08/22/17 16:04) Complete Blood Count With Diff (08/22/17 16:04) Basic Metabolic Panel (Bmp) (08/22/17 16:04) Labetalol Inj (Trandate Inj) (08/22/17 16:15) Labs Laboratory Tests Test 08/22/17 16:35 White Blood Count 8.4 TH/MM3 Red Blood Count 3.92 MIL/MM3 Hemoglobin 12.0 GM/DL Hematocrit 35.3 % Mean Corpuscular Volume 90.2 FL Mean Corpuscular Hemoglobin 30.6 PG Mean Corpuscular Hemoglobin Concent 33.9 % Red Cell Distribution Width 13.5 % Platelet Count 170 TH/MM3 Mean Platelet Volume 9.3 FL Neutrophils (%) (Auto) 59.5 % Lymphocytes (%) (Auto) 29.0 % Monocytes (%) (Auto) 10.0 % Eosinophils (%) (Auto) 0.9 % Basophils (%) (Auto) 0.6 % Neutrophils # (Auto) 5.0 TH/MM3 Lymphocytes # (Auto) 2.4 TH/MM3 Monocytes # (Auto) 0.8 TH/MM3 Eosinophils # (Auto) 0.1 TH/MM3 Basophils # (Auto) 0.1 TH/MM3 CBC Comment DIFF FINAL Differential Comment Blood Urea Nitrogen 19 MG/DL Creatinine 1.27 MG/DL Random Glucose 258 MG/DL Calcium Level 9.3 MG/DL Sodium Level 140 MEQ/L Potassium Level 4.3 MEQ/L Chloride Level 107 MEQ/L Carbon Dioxide Level 24.1 MEQ/L Anion Gap 9 MEQ/L Estimat Glomerular Filtration Rate 41 ML/MIN [facility] Medical Decision Making Medical Screen Exam Complete: Yes Emergency Medical Condition: Yes Medical Record Reviewed: Yes Differential Diagnosis Accelerated hypertension, intracranial hemorrhage, noncompliance Narrative Course I have reviewed the patient's electronic medical record. Patient is neurologically intact. Blood pressure is excessive at 240 systolic I gave her dose of clonidine and Procardia and will reassess Brain CT is negative Reassessment her blood pressure is 235 systolic, essentially unchanged I then placed an IV and gave 20 mg IV labetalol CBC normal Metabolic profile normal On recheck her blood pressure is 110 systolic and she feels better Headache is resolved I watched her a while longer and it hasn't changed from that She is advised to check and record it daily. She has close follow-up with her family physician set up she says Diagnosis Primary Impression: Accelerated hypertension Additional Impression: Headache Qualified Codes: R51 - Headache Additional Instructions: The patient was advised to follow up with their physician and return if they worsen. Check and record blood pressure daily Med/Other Pt SpecificInfo: Other Disposition: 01 DISCHARGE HOME Condition: Stable Sabino Mcneill MD Aug 22, 2017 14:57
[2017-08-22] MEDS ORDERED: NIFEdipine 20 MG CAP PO ONE (15:00)
[2017-08-22] MEDS ORDERED: cloNIDine HCL 0.2 MG TAB PO ONE (15:00)
--- NOTE | 2017-08-22 15:38 | RADRPT ---
EXAM DATE/TIME: 08/22/2017 15:15 [facility] COMPARISON: CT BRAIN W/O CONTRAST, September 20, 2015, 13:27. INDICATIONS : Hypertension with cephalgia. RADIATION DOSE: 56.35 CTDIvol (mGy) MEDICAL HISTORY : Hypertension. diabetes SURGICAL HISTORY : Hysterectomy. ENCOUNTER: Initial ACUITY: 1 day PAIN SCALE: 10/10 LOCATION: cranial TECHNIQUE: Multiple contiguous axial images were obtained of the head. Using automated exposure control and adj ustment of the mA and/or kV according to patient size, radiation dose was kept as low as reasonably a chievable to obtain optimal diagnostic quality images. DICOM format image data is available electro nically for review and comparison. FINDINGS: CEREBRUM: The ventricles are normal for age. No evidence of midline shift, mass lesion, hemorrhage or acute in farction. No extra-axial fluid collections are seen. Stable deep white matter areas of microvascular ischemic demyelinization. POSTERIOR FOSSA: The cerebellum and brainstem are intact. The 4th ventricle is midline. The cerebellopontine angle i s unremarkable. EXTRACRANIAL: The visualized portion of the orbits is intact. SKULL: The calvaria is intact. No evidence of skull fracture. CONCLUSION: Stable CT brain scan with no acute intracranial abnormality. Lauro Cisneros MD on August 22, 2017 at 15:33 Board Certified Radiologist. This report was verified electronically.
[2017-08-22] MEDS ORDERED: GLUC100013 PO (16:08)
[2017-08-22] MEDS ORDERED: MULTTAB67 PO (16:10)
[2017-08-22] MEDS ORDERED: LABETALOL HCL 100 MG/20 ML VIAL IV PUSH ONE (16:15)
[2017-08-22 16:56] LABS: BASOPHIL # 0.1 TH/MM3 (0-0.2); BASOPHIL % 0.6 % (0.0-2.0); EOSINOPHIL # 0.1 TH/MM3 (0-0.4); EOSINOPHIL % 0.9 % (0.0-4.0); HEMATOCRIT 35.3 % (35.0-46.0); LYMPHOCYTE # 2.4 TH/MM3 (1.0-4.8); MEAN CELL VOLUME 90.2 FL (80.0-100.0); MEAN CORPUSCULAR HEMOGLOBIN 30.6 PG (27.0-34.0); MEAN CORPUSCULAR HGB CONC 33.9 % (32.0-36.0); MEAN PLATELET VOLUME 9.3 FL (7.0-11.0); MONOCYTE # 0.8 TH/MM3 (0-0.9); NEUT % 59.5 % (16.0-70.0); PLATELET COUNT 170 TH/MM3 (150-450); RED BLOOD COUNT 3.92 MIL/MM3 (4.00-5.30); RED CELL DISTRIBUTION WIDTH 13.5 % (11.6-17.2); WHITE BLOOD COUNT 8.4 TH/MM3 (4.0-11.0)
[2017-08-22 17:07] LABS: BICARBONATE 24.1 MEQ/L (21.0-32.0); CALCIUM 9.3 MG/DL (8.5-10.1); CREATININE 1.27 MG/DL (0.50-1.00)
== END 2017-08-22 18:48 | disposition home or self-care (01) ==
LOC: NEPE 14:30
DX: I10 Essential (primary) hypertension (principal); R51 Headache; E78.00 Pure hypercholesterolemia, unspecified; E11.9 Type 2 diabetes mellitus without complications; K21.9 Gastro-esophageal reflux disease without esophagitis; F32.9 Major depressive disorder, single episode, unspecified; Z79.4 Long term (current) use of insulin
CPT/HCPCS: 70450; 80048; 85025; 96374

== ENCOUNTER 2018-02-05 19:32 | Observation (INO) ==
[2018-02-06 04:43] VITALS: RESP 18
[2018-02-07 10:21] VITALS: BP 159/71; PULSE 67; TEMP 97.7; O2SAT 95
== END 2018-02-07 14:53 | disposition home or self-care (01) ==
LOC: NEPE 19:32 → N06 19:32 → NEDA 02-06 00:59 → INTOOBSV 02-06 00:59 → NEDA 02-06 02:30 → N06 02-06 03:59
PROVIDERS: ADMIT Family Medicine; ATTEND Family Medicine